=== PATIENT | male | born 1945 | race Caucasian/White ===

== ENCOUNTER → 2020-05-29 | Outpatient (CLI) | payer MEDICARE, OTHER ==
[~2020-05-29] MED LIST: ATENOLOL 25 MG25 M1 PO; FISH OIL 500 M1 EACH PO; HYDROCHLOROTHIA25 M1 PO; LANTUS SUBQ; MULTIVITAMINS1 EAC7 PO; NORCO 5-325 TA1 EACH PO; NOVOLOG100 UNIT/1 SQ; PRAVASTATIN SOD10 MG PO
[2020-05-29 10:13] LABS: CALCIUM 8.4 mg/dL (8.5-10.1); POTASSIUM 3.8 mmol/L (3.5-5.1)
== END ==
LOC: M.LAB 09:45
PROVIDERS: ATTEND Internal Medicine Cardiovascular Disease
DX: I10 Essential (primary) hypertension (principal)

== ENCOUNTER → 2020-10-01 | Outpatient (CLI) | payer MEDICARE, OTHER ==
--- NOTE | 2020-10-01 17:04 | 2DMMODE ---
[place] [address] 2 D/M-MODE ECHOCARDIOGRAM Name: PBSHIMA Room: [facility]#: [id number] Admission: 10/01/20 Attend Phys: Kvng Diaz, Discharge: Date of : 41 Date of Service: 10/01/20 1704 Report #: [id number] THIS REPORT FOR: cc: Mahsa Hoffman MD, Geetha S. MD Liston, Michael J. MD [facility] ~ APPROVED REPORT Study performed: 10/01/2020 13:36:34 EXAM: Comprehensive 2D, Doppler, and color-flow Echocardiogram Patient Location: Out-Patient BSA: 2.43 HR: 74 bpm BP: 120/60 mmHg Other Information Study Quality: Fair Indications Aortic Valve Disease 2D Dimensions IVSd: 12.13 (7-11mm) LVOT Diam: 20.33 (18-24mm) LVDd: 51.93 mm PWd: 11.82 (7-11mm) Ascending Ao: 29.22 (22-36mm) LVDs: 39.30 (25-40mm) Aortic Root: 32.80 mm Volumes Left Atrial Volume (Systole) LA ESV Index: 29.60 mL/m2 Aortic Valve AoV Peak Doug.: 2.74 m/s AO Peak Gr.: 29.98 mmHg LVOT Max P.24 mmHg AO Mean Gr.: 19.03 mmHg LVOT Mean P.21 mmHg LVOT Max V: 0.75 m/s AO V2 VTI: 65.60 cm LVOT Mean V: 0.51 m/s ARNOLD (VTI): 0.81 cm2 LVOT V1 VTI: 16.41 cm Mitral Valve MV Decel. Time: 120.17 [place] [address] 2 D/M-MODE ECHOCARDIOGRAM Name: SHIMA AMBRIZ Room: [facility]#: [id number] Admission: 10/01/20 Attend Phys: Kvng Diaz, Discharge: Date of : 41 Date of Service: 10/01/20 1704 Report #: [id number] MV E Max Doug.: 1.24 m/s MV PHT: 34.85 ms MVA (PHT): 6.31 cm2 TDI E/Lateral E': 13.78 E/Medial E': 13.78 Medial E' Doug.: 0.09 m/s Lateral E' Doug.: 0.09 m/s Pulmonary Valve PV Peak Doug.: 0.86 m/s PV Peak Gr.: 2.99 mmHg Tricuspid Valve RAP Estimate: 5.00 mmHg TR Peak Gr.: 24.38 mmHg RVSP: 29.38 mmHg PA Pressure: 29.38 mmHg Left Ventricle The left ventricle is normal size. There is normal LV segmental wall motion. Mild concentric left ventricular hypertrophy. Left ventricular systolic function is normal. LVEF is 50-55%. This study is not technically sufficient to allow evaluation of the LV diastolic function due to atrial fibrillation. Right Ventricle The right ventricle is normal size. The right ventricular systolic function is normal. Atria Left atrium is mildly dilated. Right atrium is mildly dilated. Aortic Valve Bioprosthetic aortic valve is present. The mean gradient across the valve is 18 mmHg. No aortic regurgitation is present. There appears to be at least mild stenosis of the prosthetic valve based on gradients. Mitral Valve The mitral valve is normal in structure. Mild mitral regurgitation. No evidence of mitral valve stenosis. Tricuspid Valve The tricuspid valve is normal in structure. Mild tricuspid regurgitation. The RVSP is 30-[place] [address] 2 D/M-MODE ECHOCARDIOGRAM Name: SHIMA AMBRIZ Pedro Room: [facility]#: [id number] Admission: 10/01/20 Attend Phys: Kvng Diaz, Discharge: Date of : 41 Date of Service: 10/01/20 1704 Report #: [id number] Pulmonic Valve The pulmonary valve is normal in structure. There is no pulmonic valvular regurgitation. Great Vessels The aortic root is normal in size. IVC is normal in size and collapses >50% with inspiration. Pericardium There is no pericardial effusion. <Conclusion> The left ventricle is normal size. Mild concentric left ventricular hypertrophy. Left ventricular systolic function is normal. LVEF is 50-55%. Left atrium is mildly dilated. Right atrium is mildly dilated. Bioprosthetic aortic valve is present. The mean gradient across the valve is 18 mmHg. Mild mitral regurgitation. Mild tricuspid regurgitation. The RVSP is 30-35 mmHg. IVC is normal in size and collapses >50% with inspiration. <ELECTRONICALLY SIGNED> By: Kvng Diaz MD, FACC 10/01/20 1704 03 03 Kvng Diaz MD, FACC /INF
== END ==
LOC: M.CRD 13:42
PROVIDERS: ATTEND Internal Medicine Cardiovascular Disease
DX: I08.1 Rheumatic disorders of both mitral and tricuspid valves (principal); R55 Syncope and collapse; Z95.2 Presence of prosthetic heart valve

== ENCOUNTER → 2020-10-24 | Outpatient (CLI) | payer MEDICARE, OTHER ==
[2020-10-24] VITALS (7 sets, daily range): BP systolic 106–128; BP diastolic 49–72
[~2020-10-24] MED LIST changes: +AMIODARONE PO
--- NOTE | 2020-10-24 13:02 | EKG ---
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
--- NOTE | 2020-10-24 13:25 | TEE ---
[place] [address] TRANSESOPHAGEAL ECHOCARDIOGRAM Name: PBSHIMA Pedro Room: [facility]#: [id number] Admission: 10/24/20 Attend Phys: Kvng Diaz, Discharge: Date of : 41 Date of Service: 10/24/20 1325 Report #: [id number] THIS REPORT FOR: cc: Mahsa Hoffman MD, Geetha S. MD Liston, Michael J. MD [facility] ~ APPROVED REPORT Study performed: 10/24/2020 12:25:45 EXAM: Transesophageal Echocardiogram Patient Location: Out-Patient Status: routine BSA: 2.48 HR: 77 bpm BP: 124/68 mmHg Rhythm: Atrial Fibrillation Other Information Study Quality: Good Indications Atrial Fibrillation PRE-CARDIOVERSION Echo Enhancing Agent Indication: Rule out Shunt Agent(s) / Amount(s) Used: Agitated Saline 10 cc Procedure After obtaining informed consent, patient underwent transesophageal echo in the [employer]. Type of Sedation : Conscious Sedation Sedation was administered by Jessica Aceves RN. Sedation start time: 1224 Case end Time: 1240 Sedation was achieved intravenously with: Versed (3) Fentanyl (75) Transesophageal probe was inserted and advanced into esophagus without difficulty by Kvng Diaz MD, FACC. Echo enhancement indication: R/O Septal defect. Echo enhancement agent administered: Agitated Saline The MALCOM was performed without complications. Synchronized Cardioversion acheived with 360 Joules after 1 attempt([place] [address] TRANSESOPHAGEAL ECHOCARDIOGRAM Name: SHIMA AMBRIZ Room: [facility]#: [id number] Admission: 10/24/20 Attend Phys: Kvng Diaz, Discharge: Date of : 41 Date of Service: 10/24/20 1325 Report #: [id number] Rhythm following Synchronized Cardioversion: Normal Sinus Rhythm with PACs Throughout the procedure, the blood pressure, pulse oximetry, cardiac rhythm, and rate were monitored. The patient tolerated the procedure without adverse effects. Recovery from conscious sedation was uneventful and vital signs were stable. Left Ventricle The left ventricle is normal size. There is normal LV segmental wall motion. There is normal left ventricular wall thickness. Left ventricular systolic function is normal. LVEF is 50-55%. Right Ventricle The right ventricle is normal size. The right ventricular systolic function is normal. Atria Left atrium is mildly dilated. No thrombus is visualized in the left atrium or appendage. The interatrial septum is intact with no evidence for an atrial septal defect. Right atrium is mildly dilated. Aortic Valve Prosthetic aortic valve visualized. No aortic regurgitation is present. There is no aortic valvular stenosis. Mitral Valve The mitral valve is normal in structure. Mild mitral regurgitation. No evidence of mitral valve stenosis. Tricuspid Valve The tricuspid valve is normal in structure. Mild tricuspid regurgitation. Pulmonic Valve Pulmonic valve is not well visualized. Great Vessels The aortic root is normal in size. Pericardium There is no pericardial effusion. <Conclusion> The left ventricle [place] [address] TRANSESOPHAGEAL ECHOCARDIOGRAM Name: SHIMA AMBRIZ Room: [facility]#: [id number] Admission: 10/24/20 Attend Phys: Kvng Diaz, Discharge: Date of : 41 Date of Service: 10/24/20 1325 Report #: [id number] There is normal left ventricular wall thickness. Left ventricular systolic function is normal. LVEF is 50-55%. There is normal LV segmental wall motion. Left atrium is mildly dilated. No thrombus is visualized in the left atrium or appendage. Right atrium is mildly dilated. The interatrial septum is intact with no evidence for an atrial septal defect. Prosthetic aortic valve visualized. No aortic regurgitation is present. There is no aortic valvular stenosis. Mild mitral regurgitation. Mild tricuspid regurgitation. <ELECTRONICALLY SIGNED> By: Kvng Diaz MD, [facility] 10/24/20 1325 1325 1325 Kvng Diaz MD, FACC /INF
== END | disposition home or self-care (01) ==
LOC: M.CL 10:40
PROVIDERS: ATTEND Internal Medicine Cardiovascular Disease
DX: I48.91 Unspecified atrial fibrillation (principal); I08.1 Rheumatic disorders of both mitral and tricuspid valves; Z98.890 Other specified postprocedural states; Z79.899 Other long term (current) drug therapy; Z79.01 Long term (current) use of anticoagulants

== ENCOUNTER 2020-10-28 10:46 | Inpatient (IN) | payer MEDICARE, OTHER ==
[~2020-10-28] VITALS: Ht 182.9 cm; Wt 79.4 kg
--- NOTE | ~2020-10-28 | CON ---
[address] [address] CONSULTATION Name: SHIMA AMBRIZ Room: [address] IN M.R.#: [id number] Admission: 10/28/20 Attend Phys: Shaun Lo Discharge: Date of : 41 Report #: [id number] THIS REPORT FOR: cc: DENISE - No family physician/PCP FAM - No family physician/PCP ~ Alexandr Welch MD DATE OF SERVICE: 10/29/2020 CONSULT REQUESTED BY: Dr. Bassett. INDICATION FOR CONSULTATION: Pulmonary infiltrates/nodules. HISTORY OF PRESENT ILLNESS: A 75-year-old gentleman with past medical history as mentioned below. The patient is a lifetime nonsmoker. He may have underlying obstructive sleep apnea, not previously diagnosed. There is no known history of smoking. The patient does have a bioprosthetic aortic valve, his baseline creatinine is 1.0. The patient recently had a MALCOM and cardioversion performed by Dr. Diaz for atrial fibrillation. The patient now presented to the Emergency Room yesterday, presentation was with increasing shortness of breath. The patient also brought up small amounts of dark blood and he had been coughing. He essentially did not describe any other complaints. He did not have any upper respiratory complaints. There is no significant increase in swelling of lower extremities. There is no calf pain. There is no known history of fever or chills. He has had some sleep complaints, which are at baseline. The patient did undergo CTA chest, which does show ground-glass infiltrates as well as bilateral pleural effusions, right greater than left. There are also lung nodules and there is some mediastinal lymphadenopathy. The patient currently is comfortable. He is on room air. He is saturating 97%. Does not appear to be in any distress. He is not having any hemoptysis now today. He does not have hemoptysis and now today his shortness of breath is better. REVIEW OF SYSTEMS: The patient's review of systems for 12 points is negative except as mentioned above. PAST MEDICAL HISTORY: Atrial fibrillation, recent cardioversion, bioprosthetic aortic valve, normal left ventricular ejection fraction, pulmonary artery systolic around 35, creatinine at baseline 1.0. Hypertension, diabetes, hyperlipidemia, cataract surgery, hard of hearing, has had hearing aids, vasectomy, ankle fracture, vasectomy was later reversed, [place] [address] CONSULTATION Name: SHIMA AMBRIZ Room: [address]#: [id number] Admission: 10/28/20 Attend Phys: Shaun Lo Discharge: Date of : 41 Report #: [id number] SOCIAL HISTORY: Lifetime nonsmoker. No known history of heavy alcohol use or illegal drug use. CURRENT MEDICATIONS: List in [facility] reviewed. HOME MEDICATIONS: List also in [facility] reviewed. ALLERGIES: No known drug allergies. FAMILY HISTORY: No pertinent family history. PHYSICAL EXAMINATION: GENERAL: He is alert, awake and oriented, does not appear to be in any distress at this time. He is not on supplemental oxygen. He is saturating 96-97%. VITAL SIGNS: Pulse of 60 and a blood pressure of 126/58, respiratory rate is 16-17, afebrile with a temperature of 37.0. Body mass index is mentioned to be 24. He does; however, appear to have a short neck and by appearance the patient is more overweight than the body mass index would suggest. HEENT: Head is normocephalic and atraumatic. He does appear to have a narrow airway. His mucous membranes are moist. NECK: Does not show raised JVP, asymmetry, mass or lymph nodes. CHEST: Symmetrical expansion on inspection and palpation. On auscultation, chest is clear. HEART: Regular. There is no murmur. ABDOMEN: Soft and nontender. EXTREMITIES: Lower extremities show trace edema. No calf tenderness. SKIN: Dry and intact. NEUROLOGICAL: Moves all extremities bilaterally equally and spontaneously with no focal deficit identified. LABORATORY DATA: The patient's chest x-ray as well as CTA chest films as well as report are reviewed. See also discussion above regarding these. The patient's lab work is also in [facility] reviewed. COVID-19 antigen is negative. PCR is pending. ASSESSMENT/PLAN: 1. Ground-glass pulmonary infiltrates/fluid overload/bilateral pleural effusions. Due to the fact that there are bilateral pleural effusions, right greater than left, he does appear to me that there is a component of fluid overload. The appearance of the infiltrates; however, is not typical for pulmonary edema. We will review labs tomorrow. Note that he has received vancomycin and he has also had IV dye. If his creatinine is stable tomorrow, then I will consider diuresing him tomorrow and see if these infiltrates improve as a result. Meanwhile, I do favor continuing with broad-spectrum antibiotic [address] [address] CONSULTATION Name: HERBEL,SHIMA C Room: [address] IN .R.#: [id number] Admission: 10/28/20 Attend Phys: Shaun Lo Discharge: Date of : 41 Report #: [id number] coverage. He is now on azithromycin as well as ceftriaxone per the ID service, I feel that this is reasonable. If we are able to, I would like to get a sputum culture. Other serologies are also ordered. These include a COVID-19 PCR, which is pending at this time. 2. Lung nodules and mediastinal lymphadenopathy. These could be related to the infiltrates above, but these could also be a separate more chronic process, which may have been incidentally discovered on the CT. I do not have a previous CT available for comparison. Septic emboli can give this picture, but the patient's history is not consistent with septic emboli. Other etiology certainly include fungal infections as well as malignancies as well as connective tissue diseases. We would address the above study, but down the line, I would consider a bronchoscopy to investigate this further and may also down the line consider a CT of the abdomen and pelvis. I did order a urine for histoplasma antigen as well. We will also obtain connective tissue markers potentially Fungitell and galactomannan can be done; however, these will take several days to come back here and therefore may not affect management. 3. Atrial fibrillation/recent cardioversion. Suggest holding off on oral anticoagulation until decision regarding whether we will be proceeding with the bronchoscopy. May in the interim use heparin or Lovenox for anticoagulation if indicated per the Cardiology service. 4. Suspected underlying obstructive sleep apnea. Recommend obtaining an outpatient sleep study after discharge. 5. Bioprosthetic aortic valve. Thanks for this consultation. By: 2231 MD kari Moreno
[2020-10-28 11:00] VITALS: BP 118/53
[2020-10-28] MEDS ORDERED: AMIODARONE HCL400 MG PO (11:07)
[2020-10-28] MEDS ORDERED: XARELTO20 MG PO (11:07)
[2020-10-28 11:40] LABS: ABSOLUTE EOSINOPHILS 0.1 thou/uL (0.0-0.7); ABSOLUTE LYMPHOCYTES 0.9 thou/uL (0.8-5.3); ABSOLUTE MONOCYTES 0.9 thou/uL (0.0-1.2); ABSOLUTE NEUTROPHILS 9.9 thou/uL (1.6-8.1); BASOPHILS 0.4 %; EOSINOPHILS 0.7 %; HEMATOCRIT 41.1 % (42.0-52.0); HEMOGLOBIN 13.4 gm/dL (14.0-18.0); LYMPHOCYTES 7.7 %; MCH 27.7 pg (26.0-34.0); MCHC 32.5 g/dL (28.0-37.0); MCV 85.1 fL (80.0-100.0); MONOCYTES 7.8 %; MPV 7.9 fl. (7.2-11.1); NUCLEATED RBCS 0 /100WBC; PLATELET COUNT* 177 thou/uL (150-400); POLYS 83.4 %; RBC 4.83 mil/uL (4.50-6.00); RDW-CV 14.1 % (10.5-14.5); WBC 11.8 thou/uL (4.0-11.0)
[2020-10-28 11:44] LABS: CALCIUM 9.3 mg/dL (8.5-10.1); CREATININE 1.2 mg/dL (0.6-1.3); POTASSIUM 3.8 mmol/L (3.5-5.1)
[2020-10-28 11:48] LABS: APTT 46.4 Seconds (25.0-31.3); INR 1.3
[2020-10-28 11:56] LABS: ALBUMIN 3.5 g/dL (3.4-5.0); TOTAL BILIRUBIN 1.6 mg/dL (<0.1-1.0); TOTAL PROTEIN 7.6 g/dL (6.4-8.2)
[2020-10-28 17:55] VITALS: BP 116/45
[2020-10-28 19:02] VITALS: BP 154/75
[2020-10-28 19:30] VITALS: BP 141/60
[2020-10-28] MEDS ORDERED: VITAMIN B-121000 MC2 SUBLING (20:24)
[2020-10-28] MEDS ORDERED: VITAMIN D3250 MC1 PO (20:25)
[2020-10-29 00:41] VITALS: BP 115/44
--- NOTE | 2020-10-29 04:33 | NUR ---
PT SLEPT ON AND OFF THIS SHIFT. ASSESSMENT DOCUMENTED. MEDS GIVEN PER E-DEC. IV PATENT, ABX INFUSED. NO REPORTS OF PAIN. PT ON ROOM AIR. ISOLATION MAINTAINED.
[2020-10-29 05:10] VITALS: BP 146/66
[2020-10-29 07:50] VITALS: BP 134/60
[2020-10-29 11:54] VITALS: BP 129/66
--- NOTE | 2020-10-29 14:30 | NUR ---
SPOKE WITH PT.ON PHONE DUE TO PENDING PCR AND ON ENHANCED PRECAUTIONS. HE WAS ALERT AND ORIENTED. HE STATED HE LIVES WITH HIS . NO USE OF DME. IS NORMALLY INDEPENDENT. DAUGHTER IS ALSO SUPPORTIVE. NURSING SAID HE IS UP AD NAZARIO IN ROOM. ON ROOM AIR. CM WILL FOLLOW FORE ANY DISCHARGE NEEDS.
[2020-10-29 15:00] VITALS: BP 126/58
--- NOTE | 2020-10-29 16:07 | EKG ---
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1945 Requested By: Kim Nugent Order Number: [id number] MD: Tate Rodriguez Measurements Intervals [place] Rate: 59 P: [place]: QRS: 4 QRSD: 100 T: 91 QT: 463 QTc: 459 Interpretive Statements Sinus rhythm Anteroseptal infarct, age indeterminate possible Compared to ECG 10/24/2020 11:55:06 Myocardial infarct finding now possible Atrial fibrillation no longer present T-wave abnormality no longer present Prolonged QT interval no longer present Electronically Signed On 10-29-2020 16:07:12 RECOVERY COORDINATOR by Tate Rodriguez [email or web address] <ELECTRONICALLY SIGNED> By: Tate Rodriguez MD, FAC 10/29/20 1607 1154 1154 Tate Rodriguez MD, [facility]GED WITH [facility] /EPI
--- NOTE | 2020-10-29 16:51 | NUR ---
PT A&OX4 VSS. PT UP AD NAZARIO, URINAL AT BEDSIDE. PT REMAINS ON ROOM AIR, SATS 95%. PT ACCUCHECK, SLIDING SCALE INSULIN ON DEC. PT SINUS ON MONITOR, PVC AT TIMES. IV ABX ADMINISTERED DIRECTED. IV TO RAC DC'D AND NEW ACCESS PLACED TO LFA BY JAMARCUS KUMAR. IV PATENT, DRESSING C/D/I. CARB CONTROL DIET RESUMED BY CARDIOLOGY. PT RESTS IN ROOM WITH CALL LIGHT IN REACH.
[2020-10-29 19:45] VITALS: BP 147/57
[2020-10-30] VITALS: BP 145/66
[2020-10-30 04:00] VITALS: BP 122/50
--- NOTE | 2020-10-30 04:51 | NUR ---
PT SLEPT MOST OF SHIFT. ASSESSMENT DOCUMENTED. MEDS GIVEN PER E-DEC. IV PATENT. NO REPORTS OF PAIN THIS SHIFT. NO O2 NEEDS. PTS COVID PCR CAME BACK 'NOT DETECTED', NOTIFED.
[2020-10-30 05:20] LABS: ABSOLUTE BASOPHILS 0.1 thou/uL (0.0-0.2); ABSOLUTE EOSINOPHILS 0.4 thou/uL (0.0-0.7); ABSOLUTE LYMPHOCYTES 1.5 thou/uL (0.8-5.3); ABSOLUTE MONOCYTES 0.9 thou/uL (0.0-1.2); ABSOLUTE NEUTROPHILS 7.7 thou/uL (1.6-8.1); BASOPHILS 0.8 %; EOSINOPHILS 3.9 %; HEMATOCRIT 39.2 % (42.0-52.0); HEMOGLOBIN 12.8 gm/dL (14.0-18.0); LYMPHOCYTES 14.1 %; MCH 27.9 pg (26.0-34.0); MCHC 32.7 g/dL (28.0-37.0); MCV 85.2 fL (80.0-100.0); MONOCYTES 8.6 %; MPV 7.4 fl. (7.2-11.1); NUCLEATED RBCS 0 /100WBC; PLATELET COUNT* 181 thou/uL (150-400); POLYS 72.6 %; RDW-CV 14.7 % (10.5-14.5); WBC 10.6 thou/uL (4.0-11.0)
[2020-10-30 05:37] LABS: ALBUMIN 3.2 g/dL (3.4-5.0); CALCIUM 8.6 mg/dL (8.5-10.1); CREATININE 1.1 mg/dL (0.6-1.3); MAGNESIUM 2.3 mg/dL (1.8-2.4); POTASSIUM 3.6 mmol/L (3.5-5.1); TOTAL PROTEIN 7.1 g/dL (6.4-8.2)
[2020-10-30 07:40] VITALS: BP 151/61
--- NOTE | 2020-10-30 11:58 | NUR ---
DISCUSSED IN PRIME TIME ROUNDS. PT.S COVID TESTS CAME BACK NEGATIVE. SAID HE POSSIBLY NEEDS A BRONCH. IS ON RA CURRENTLY. CONTINUE TO FOLLOW.
[2020-10-30 12:10] VITALS: BP 139/48
[2020-10-30 16:03] VITALS: BP 142/60
--- NOTE | 2020-10-30 18:40 | NUR ---
PT A&OX4 VSS. UP AD NAZARIO, GAIT STEADY. PT ON ROOM AIR. URINAL AT BEDSIDE. PT UP TO RECLINER THIS SHIFT. ACCUCHECKS, INSULIN ADMINISTERED DIRECTED. PT NPO LUNCH FOR CT, CARB CONTROL DIET RESUMED FOLLOWING EXAM. IV TO LFA PATENT, DRESSING C/D/I. PT REMAINS SINUS ON MONITOR. PT RESTS IN ROOM WITH CALL LIGHT IN REACH. PT DENIES PAIN, N/V AT THIS TIME.
[2020-10-30 19:30] VITALS: BP 152/63
[2020-10-31] VITALS: BP 155/53
[2020-10-31 04:00] VITALS: BP 127/52
--- NOTE | 2020-10-31 06:38 | NUR ---
ASSESSMENT DOCUMENTED. MEDS GIVEN PER E-MAR. IV PATENT. NO REPORTS OF PAIN. PT REMAINED ON ROOM AIR THIS SHIFT.
[2020-10-31 09:15] VITALS: BP 140/62
[2020-10-31 10:10] LABS: CALCIUM 8.2 mg/dL (8.5-10.1); POTASSIUM 3.9 mmol/L (3.5-5.1)
[2020-10-31 14:44] VITALS: BP 133/45
--- NOTE | 2020-10-31 16:00 | NUR ---
ON ROOM AIR. CONTS ON IV ROCEPHIN AND AZITHROMYCIN. IS TO HAVE CT OF CHEST TOMORORW. CM WILL FOLLOW.
[2020-10-31 16:58] LABS: CALCIUM 9.4 mg/dL (8.5-10.1); CREATININE 1.2 mg/dL (0.6-1.3); MAGNESIUM 2.2 mg/dL (1.8-2.4); POTASSIUM 4.8 mmol/L (3.5-5.1)
[2020-10-31 17:25] VITALS: BP 136/61
--- NOTE | 2020-10-31 18:59 | NUR ---
PC FROM DR. QUARLES. LABS READ FROM THIS AFTERNOON. ORDER FOR 40 MG IV LASIX X 1 THIS EVENING. NO OTHER ORDERS GIVEN.
[2020-10-31 20:00] VITALS: BP 149/59
--- NOTE | 2020-10-31 20:00 | NUR ---
PT ALERT AND ORIENTED. VSS. PT UP AD NAZARIO. PT TO BE NPO IN THE AM FOR ABDOMINAL CT. NEW ORDERS GIVEN BY DR. KAY. PT ACCU CHECKS COMPLETED. PT RESPS EVEN AND UNLABORED. PT NOT ON ISOLATION. WILL CONTINUE TO MONITOR.
[2020-10-31 21:06] LABS: ANA INTERPRETATION Negative (())
[2020-11-01] VITALS (9 sets, daily range): BP systolic 134–146; BP diastolic 55–65
[2020-11-01 02:06] LABS: MYCOPLASMA PNEUMONIA IgG 2241 U/mL (0-99); MYCOPLASMA PNEUMONIA IgM <770 U/mL (0-769)
--- NOTE | 2020-11-01 04:30 | NUR ---
PT ALERT AND ORIENTED. ROOM AIR. NO REPORTS OF ANY PAIN, NAUSEA OR VOMITING. RECEIVED MEDS SCHEDULED. NPO SINCE MIDNIGHT. CT OF CHEST ORDERED FOR WEDNESDAY. MONITOR LABS. SKIN COLOR IMPROVING, LASIX GIVEN. WILL CONTINUE TO FOLLOW PLAN OF CARE.
[2020-11-01 05:25] LABS: ABSOLUTE BASOPHILS 0.1 thou/uL (0.0-0.2); ABSOLUTE EOSINOPHILS 0.6 thou/uL (0.0-0.7); ABSOLUTE LYMPHOCYTES 1.2 thou/uL (0.8-5.3); ABSOLUTE MONOCYTES 0.9 thou/uL (0.0-1.2); ABSOLUTE NEUTROPHILS 7.3 thou/uL (1.6-8.1); BASOPHILS 0.7 %; EOSINOPHILS 6.4 %; HEMATOCRIT 43.1 % (42.0-52.0); HEMOGLOBIN 14.3 gm/dL (14.0-18.0); LYMPHOCYTES 11.5 %; MCH 28.1 pg (26.0-34.0); MCHC 33.1 g/dL (28.0-37.0); MCV 84.8 fL (80.0-100.0); MONOCYTES 8.7 %; MPV 7.5 fl. (7.2-11.1); NUCLEATED RBCS 0 /100WBC; PLATELET COUNT* 218 thou/uL (150-400); POLYS 72.7 %; RBC 5.09 mil/uL (4.50-6.00); RDW-CV 14.5 % (10.5-14.5)
[2020-11-01 05:41] LABS: CALCIUM 9.6 mg/dL (8.5-10.1); CREATININE 1.2 mg/dL (0.6-1.3); POTASSIUM 3.7 mmol/L (3.5-5.1)
[2020-11-01] MEDS ORDERED: AUGMENTIN 875-1 EACH PO (08:49)
--- NOTE | 2020-11-01 11:00 | NUR ---
POTENTIAL DISCHARGE TODAY PENDING PROCEDURES. NO DISCHARGE NEEDS.
[2020-11-01] MEDS ORDERED: LASIX 40 MG TAB40 MG PO (12:11)
[2020-11-01] MEDS ORDERED: XARELTO20 MG PO (13:49)
--- NOTE | 2020-11-01 17:11 | NUR ---
PT DISCHARGED HOME WITH ALL BELONGINGS. PT AMBULATED TO OUT PATIENT ENTRANCE/EXIT WITH STEADY GAIT, PT DISCHARGED HOME PT DENIES PAIN VSS AFEBRILE. PT HAS GOOD UNDERSTANDING OF DISCHARGE INSTRUCTIONS AND WHEN TO CALL THE DR OR GO BACK TO THE ER. PT WAS ROUNDED ON EVERY 2 HOURS. SALINE LOCKS REMOVED FROM LEFT FOREARM AND RIGHT AC SPACE, WITH OUT DIFFICULTY NO BLEEDING OR BRUISING NOTED. HEART MONITOR REMOVED WITH OUT DIFFICULTY. PT DISCHARGED HOME AND WILL FOLLOW UP WITH PULMONARY AND CARDIOLOGY. CARDIOLOGY APPOINTMENT MADE FOR A MALCOM PROCEEDEURE FOR TUESDAY 11/07.2020.
--- NOTE | 2020-11-01 17:14 | NUR ---
THIS NURSE AGREES WITH ASSESSMENT BY SHRAVAN.
== END 2020-11-01 17:32 | disposition home or self-care (01) | DRG 177 ==
LOC: M.ERS 10:46 → M.TBA-ER 14:12 → M.ORTHSURG 14:12
PROVIDERS: Internal Medicine; Internal Medicine Critical Care Medicine; Nurse Practitioner Family; ADMIT Internal Medicine; ATTEND Internal Medicine
DX: J15.6 Pneumonia due to other Gram-negative bacteria (principal); J96.01 Acute respiratory failure with hypoxia; R04.2 Hemoptysis; I10 Essential (primary) hypertension; I48.91 Unspecified atrial fibrillation; E78.5 Hyperlipidemia, unspecified; E87.70 Fluid overload, unspecified; E11.40 Type 2 diabetes mellitus with diabetic neuropathy, unspecified; R91.1 Solitary pulmonary nodule; R59.1 Generalized enlarged lymph nodes; I48.0 Paroxysmal atrial fibrillation; Z20.822 Contact with and (suspected) exposure to COVID-19; Z95.1 Presence of aortocoronary bypass graft; Z98.52 Vasectomy status; Z87.81 Personal history of (healed) traumatic fracture; Z98.49 Cataract extraction status, unspecified eye; Z95.2 Presence of prosthetic heart valve

== ENCOUNTER → 2020-12-03 | Outpatient (CLI) | payer MEDICARE, OTHER ==
[~2020-12-03] MED LIST changes: +AMIODARONE HCL400 MG PO; +AUGMENTIN 875-1 EACH PO; +LASIX 40 MG TAB40 MG PO; +VITAMIN B-121000 MC2 SUBLING; +VITAMIN D3250 MC1 PO; +XARELTO20 MG PO
--- NOTE | 2020-12-09 21:05 | SLEEP ---
[address] [address] SLEEP STUDY REPORT Name: PBSHIMA Pedro Room: [facility]#: [id number] Admission: 12/03/20 Attend Phys: Alexandr Welch MD Discharge: Date of : 41 Report #: [id number] THIS REPORT FOR: cc: Jessica Michele MD, Lin W. MD ~ Alexandr Welch MD This study has been reviewed in its entirety by a board certified sleep specialist DATE OF SERVICE: 12/03/2020 HOME SLEEP STUDY INTERPRETATION: Total duration of the study is 605 minutes. During this time duration, we recorded multiple sleep related respiratory events. These included 71 obstructive apneas in addition to 90 hypopneas with an overall apnea-hypopnea index of 45.8. The patient also had multiple and deep desaturations throughout the sleep study. Overall, the patient spent 112 minutes below an O2 saturation of 90%, out of which 24 minutes were spent below an O2 saturation of 85%. There were some desaturations into the 60s recorded. The patient spent 10 minutes below an O2 saturation of 80%. Body position data indicates the patient was observed in the supine position for 143 minutes. Respiratory time, the patient was on the right side. Mean heart rate was 62. There is no obvious positional variation detected. IMPRESSION: 1. There is severe obstructive sleep apnea with an apnea-hypopnea index of 45.8. 2. There is severe nocturnal hypoxemia as described above with the patient spending 112 minutes below an O2 saturation of 90%, 82.5 minutes below an O2 saturation of 88%. Some desaturations into the 60s, also recorded. RECOMMENDATIONS: 1. Recommend proceeding to an in-lab sleep study for positive airway pressure titration. 2. Until the in-lab sleep study is available, I suggest placing the patient on oxygen 3 liters while asleep. 3. Recommend avoiding driving or other activities requiring [place] [address] SLEEP STUDY REPORT Name: SHIMA AMBRIZ Room: [facility]#: [id number] Admission: 12/03/20 Attend Phys: Alexandr Welch MD Discharge: Date of : 41 Report #: [id number] This entire sleep study was reviewed by board certified sleep physician. <ELECTRONICALLY SIGNED> By: Alexandr Welch MD 12/09/20 2105 1527 [id number] Welch MD /nt
--- NOTE | 2020-12-09 21:05 | PF ---
[address] [address] PULMONARY FUNCTION REPORT Name: SHIMA AMBRIZ Room: [facility]#: [id number] Admission: 12/03/20 Attend Phys: Alexandr Welch MD Discharge: Date of : 41 Report #: [id number] THIS REPORT FOR: cc: Jessica Michele MD, Lin W. MD ~ Alexandr Welch MD DATE OF SERVICE: 12/03/2020 PULMONARY FUNCTION TEST The FEV1/FVC ratio is normal at 73% with an FVC normal at 96%. The FEV1 is also normal at 97%. The [id number] is normal at 103%. There is no significant change in any of these values after the administration of a bronchodilator. The patient's post-bronchodilator FEV1 is noted to be 3.17 liters. The total lung capacity is decreased to 65%. The residual volume is not available. The DLCO as adjusted for hemoglobin is decreased to 66%. IMPRESSION: 1. The spirometry is normal; however, the total lung capacity is decreased to 65%. This is consistent with significant restriction. Clinical correlation is advised. 2. The DLCO as adjusted for hemoglobin is decreased to 66%. <ELECTRONICALLY SIGNED> By: Alexandr Welch MD 12/09/20 2105 1529 [id number] Welch MD /brianna
== END ==
LOC: M.PUL 11-27 13:33
PROVIDERS: ATTEND Internal Medicine Critical Care Medicine
DX: G47.33 Obstructive sleep apnea (adult) (pediatric) (principal); G47.34 Idiopathic sleep related nonobstructive alveolar hypoventilation; G47.10 Hypersomnia, unspecified; R06.02 Shortness of breath

== ENCOUNTER → 2020-12-13 | Outpatient (CLI) | payer MEDICARE, OTHER | LOC: M.RAD 16:38 | PROVIDERS: ATTEND Internal Medicine | DX: M16.0 Bilateral primary osteoarthritis of hip (principal) ==

== ENCOUNTER → 2021-01-03 | Outpatient (CLI) | payer MEDICARE, OTHER ==
[2021-01-03 08:37] LABS: CHOLESTEROL 158 mg/dL (<200); HDL CHOLESTEROL 60 mg/dL (>40); LDL CHOLESTEROL 85 mg/dL (<100); TC:HDL 2.6 Ratio (Not establshd); TRIGLYCERIDE 69 mg/dL (<150); VLDL 14 mg/dL (<40)
[2021-01-03 08:39] LABS: SERUM ASSESSMENT Clear
== END ==
LOC: M.LAB 08:12
PROVIDERS: ATTEND Internal Medicine Cardiovascular Disease
DX: E78.2 Mixed hyperlipidemia (principal)

== ENCOUNTER → 2021-01-21 | Outpatient (CLI) | payer MEDICARE, OTHER ==
--- NOTE | 2021-02-04 13:39 | SLEEP ---
[address] [address] SLEEP STUDY REPORT Name: PBSHIMA Pedro Room: [facility]#: [id number] Admission: 01/21/21 Attend Phys: Alexandr Welch MD Discharge: Date of : 41 Report #: [id number] THIS REPORT FOR: cc: Jessica Michele MD, Lin W. MD Pervez, Adeel MD ~ DOC #: [id number] Alexandr Welch MD SLEEP STUDY INDICATION FOR SLEEP STUDY: Obstructive sleep apnea with nocturnal hypoxemia noted on the home sleep study. Sleep study is being performed for positive airway pressure titration. INTERPRETATION: The total duration of the sleep study is 448 minutes, out of which the patient was asleep for 256 minutes with an overall sleep efficiency decreased to 57%. The sleep onset occurred around 25 minutes after lying down in bed and REM onset was 91 minutes after sleep onset. N1 sleep duration is 14%. N2 duration is 46%. N3 duration is 19%. REM duration is 21%. Body position data indicates that the patient was observed asleep in the supine position for 194 minutes. The rest of the time, he was on the left side. Mean heart rate was 50. Periodic limb movement index is mildly elevated to 18.1. Most limb movements, however, are not associated with arousals. There is sleep fragmentation observed. Arousal index is elevated to 25. IMPRESSION: This is a CPAP titration. Review of the CPAP titration indicates that the patient was titrated beginning with a CPAP pressure of 6 cm of water, gradually increasing to 12 cm of water. There is a favorable response to CPAP therapy; however, evaluation is limited due to the fact that the patient is awake in prolonged periods of time during this sleep study. There is only a brief duration of time REM supine sleep observed on a CPAP pressure of 10 cm of water. There are multiple desaturations continuing to occur throughout the sleep study. O2 saturations frequently dip into the upper 80s. O2 saturation, however, mostly remains at or above 88%. On the final CPAP pressure of 12 cm of water, there is still an elevation in apnea-hypopnea index to 12.4. O2 saturation is now maintained at or above 91%; however, the patient mostly is awake towards the end of the sleep study. As noted, when he is in sustained sleep, he has some desaturations into the upper 80s. IMPRESSION: 1. The patient at baseline has severe obstructive sleep apnea with an apnea-hypopnea index of 45.8 with marked nocturnal hypoxemia as demonstrated [place] [address] SLEEP STUDY REPORT Name: SHIMA AMBRIZ Room: [facility]#: [id number] Admission: 01/21/21 Attend Phys: Alexandr Welch MD Discharge: Date of : 41 Report #: [id number] 2. During this sleep study, the patient is noted to have improvement with the administration of CPAP of 12 cm of water. Some sleep related respiratory events do however continue to occur and complete control of the patient's sleep apnea is not achieved. The patient still does have desaturations into the upper 80s while on CPAP. Evaluation during the sleep study is also limited due to the fact that the patient is awake for prolonged periods of time during this sleep study. RECOMMENDATIONS: 1. For now, we will go ahead and place the patient on a CPAP of 12 cm of water with heated humidity and mask per patient's preference while asleep during the sleep study. A ResMed AirFit F20 medium size mask full face was used. 2. I plan to obtain a nocturnal pulse oximetry with the CPAP in place in a few weeks to verify that the patient's O2 saturations are being adequately maintained with this therapy. 3. Once the patient has gotten accustomed the use of CPAP in the next few months, I intend to repeat a sleep study for repeat positive airway pressure titration. At this time, we will also clearly instruct the patient to stay awake the whole day and avoid caffeine during the day before the sleep study so that an adequate positive airway pressure titration can be performed. 4. Recommend avoiding driving or other activities requiring vigilance if drowsy. 5. Recommend weight loss. 6. This entire sleep study was reviewed by board certified sleep physician. MD ZURDO Pennington/MATY <ELECTRONICALLY SIGNED> By: Alexandr Welch MD 02/04/21 1339 0626 [id number] Welch MD /nt
== END ==
LOC: M.SLEEPLAB 01-17 21:00
PROVIDERS: ATTEND Internal Medicine Critical Care Medicine
DX: G47.33 Obstructive sleep apnea (adult) (pediatric) (principal)

== ENCOUNTER → 2021-01-24 | Outpatient (CLI) | payer MEDICARE, OTHER | LOC: M.LAB 11-21 14:05 | PROVIDERS: ATTEND Internal Medicine Critical Care Medicine | DX: R91.8 Other nonspecific abnormal finding of lung field (principal); R59.0 Localized enlarged lymph nodes; I51.7 Cardiomegaly ==

== ENCOUNTER → 2021-03-21 | Outpatient (CLI) | payer MEDICARE, OTHER | END | disposition home or self-care (01) | LOC: M.RAD 12:28 | PROVIDERS: ATTEND Orthopaedic Surgery | DX: M25.551 Pain in right hip (principal); I10 Essential (primary) hypertension; E11.9 Type 2 diabetes mellitus without complications; E78.00 Pure hypercholesterolemia, unspecified; I48.91 Unspecified atrial fibrillation; Z98.890 Other specified postprocedural states; Z79.899 Other long term (current) drug therapy; Z79.01 Long term (current) use of anticoagulants ==

== ENCOUNTER → 2021-03-24 | Outpatient (CLI) | payer MEDICARE, OTHER | LOC: M.RAD 16:35 | PROVIDERS: ATTEND Internal Medicine Critical Care Medicine | DX: R06.02 Shortness of breath (principal) ==

== ENCOUNTER → 2021-04-11 | Outpatient (CLI) | payer MEDICARE, OTHER | LOC: M.MRI 07:30 | PROVIDERS: ATTEND Orthopaedic Surgery | DX: M47.817 Spondylosis without myelopathy or radiculopathy, lumbosacral region (principal); M51.27 Other intervertebral disc displacement, lumbosacral region; M48.07 Spinal stenosis, lumbosacral region ==

== ENCOUNTER 2021-04-20 20:55 | Inpatient (IN) | payer MEDICARE, OTHER ==
[~2021-04-20] VITALS: Ht 182.9 cm; Wt 113.4 kg
[~2021-04-20 20:55] MED LIST changes: -MULTIVITAMINS1 EAC7 PO; +SUPER THERAVIT1 EACH PO
[2021-04-20 21:00] VITALS: BP 175/73
[2021-04-20] MEDS ORDERED: LIPITOR10 MG PO (21:10)
[2021-04-20] MEDS ORDERED: EYE DROPS (21:10)
[2021-04-20 21:55] LABS: ABSOLUTE EOSINOPHILS 0.1 thou/uL (0.0-0.7); ABSOLUTE LYMPHOCYTES 1.4 thou/uL (0.8-5.3); ABSOLUTE MONOCYTES 0.6 thou/uL (0.0-1.2); ABSOLUTE NEUTROPHILS 6.1 thou/uL (1.6-8.1); BASOPHILS 0.4 %; EOSINOPHILS 1.7 %; HEMATOCRIT 41.5 % (42.0-52.0); HEMOGLOBIN 14.2 gm/dL (14.0-18.0); LYMPHOCYTES 16.8 %; MCH 28.3 pg (26.0-34.0); MCHC 34.4 g/dL (28.0-37.0); MCV 82.3 fL (80.0-100.0); MONOCYTES 7.3 %; NUCLEATED RBCS 0 /100WBC; PLATELET COUNT* 134 thou/uL (150-400); POLYS 73.8 %; RBC 5.04 mil/uL (4.50-6.00); WBC 8.2 thou/uL (4.0-11.0)
[2021-04-20 22:42] LABS: CALCIUM 8.6 mg/dL (8.5-10.1); CREATININE 1.2 mg/dL (0.6-1.3); POTASSIUM 3.4 mmol/L (3.5-5.1)
[2021-04-20 22:44] LABS: URINE BILIRUBIN NEGATIVE (Negative); URINE BLOOD TRACE (Negative); URINE CLARITY CLEAR; URINE COLOR YELLOW; URINE GLUCOSE-RANDOM TRACE (Negative); URINE KETONES NEGATIVE (Negative); URINE LEUKOCYTES-REFLEX NEGATIVE (Negative); URINE NITRITE-REFLEX NEGATIVE (Negative); URINE PROTEIN 2+ (Negative); URINE SPECIFIC GRAVITY 1.025 (1.005-1.030)
[2021-04-20 22:53] LABS: ALBUMIN 3.3 g/dL (3.4-5.0); MAGNESIUM 1.7 mg/dL (1.8-2.4); TOTAL BILIRUBIN 0.9 mg/dL (<0.1-1.0); TOTAL PROTEIN 7.1 g/dL (6.4-8.2)
[2021-04-20 23:21] LABS: CASTS None Seen /LPF (None Seen); SQUAMOUS 0-3 Few /LPF (0-3)
[2021-04-20 23:22] LABS: BACTERIA-REFLEX 1-9 Few /HPF (None Seen); CRYSTALS None Seen /LPF (None Seen); URINE RBC 0-2 Rare /HPF (0-2); URINE WBC-REFLEX 0-5 Rare /HPF (0-5)
[2021-04-21] VITALS (9 sets, daily range): BP systolic 112–177; BP diastolic 44–70
[2021-04-21 08:37] LABS: CHOLESTEROL 108 mg/dL (<200); HDL CHOLESTEROL 58 mg/dL (>40); LDL CHOLESTEROL 45 mg/dL (<100); TC:HDL 1.9 Ratio (Not establshd); TRIGLYCERIDE 28 mg/dL (<150); VLDL 6 mg/dL (<40)
[2021-04-21 08:39] LABS: SERUM ASSESSMENT Clear
--- NOTE | 2021-04-21 09:04 | NUR ---
PT GETTING ECHO DONE AT THIS TIME.
--- NOTE | 2021-04-21 10:02 | EKG ---
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
--- NOTE | 2021-04-21 10:08 | EKG ---
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 04/21/21 1007 0134 0134 Ted Pate MD, [facility] /EPI
--- NOTE | 2021-04-21 12:45 | NUR ---
PT HAVING RUNS OF V-TACH. GIVEN AMIO 200MG PO AND POTASSIUM 20MEQ PO. PER DR. ORTIZ. AUGER OPERATOR RN CAME TO GET PT AND THIS NURSE AND JAILENE RN FROM AUGER OPERATOR TOOK PT IN BED TO AUGER OPERATOR.
--- NOTE | 2021-04-21 17:10 | CARD ---
[address] [address] CARDIAC CATH REPORT Name: SHIMA AMBRIZ Pedro Room: [place] [address] ADM IN [facility].#: [id number] Admission: 04/20/21 Attend Phys: Kareem Reddy MD Discharge: Date of : 43 Report #: [id number] THIS REPORT FOR: cc: Jessica Michele MD, Lin W. MD Blick, David R. MD [facility] ~ APPROVED REPORT Study performed: 04/21/2021 12:27:31 Patient Details Patient Status: ED Room #: The patient is a 75 year-old male Event Personnel Ted Pate Sample Tester Grinder, Sherin Cerda RN Solution Lead, Zulma Masters RTR Monitor, Mariely Moreno RTR Scrub Procedures Performed Art Access - R femoral artery , Coronaries Angiography and Bypass Grafts CORCABG , Supravalvular Aortography Injection ISVA , Hemostasis w/ Mynx, direct current cardioversion was used twice to terminate symptomatic ventricular tachycardia Indication Non-STEMI , Syncope, Valvular heart disease Risk Factors Arterial Hypertension, Hypercholesterolemia, Diabetes Previous Procedures/Diagnoses Previous CABG, Previous Valve Surgery Admission/Lab Medications/Medications given during procedure Amiodarone IV 150 mg per min, Magnesium Sulfate IV 1 g, Amiodarone IV 150 mg per min, Hydralazine (Apresoline) IV 10 mg Procedure Narrative The patient was brought electively to the Cardiac Catheterization Laboratory and was prepped and draped in a sterile manner. The right femoral was infiltrated with 2% Lidocaine subcutaneous anesthesia. IV conscious sedation was used throughout procedure with appropriate monitoring and was performed in the presence [place] [address] CARDIAC CATH REPORT Name: SHIMA AMBRIZ Room: [address]#: [id number] Admission: 04/20/21 Attend Phys: Kareem Reddy MD Discharge: Date of : 43 Report #: [id number] who was an independent trained observer other than the physician performing the procedure. A 6F Ultimum sheath was inserted into the right femoral artery. Coronary angiography was performed using coronary diagnostic catheters. The right coronary system was accessed and visualized with a 6F JR4 catheter. The left coronary system was accessed and visualized with a 6F JL4 catheter. An aortogram of the ascending aorta was performed. Closure device was deployed with a 6 Fr Mynx. There was no hematoma. The patient developed V-Tach and was defibrillated twice at 100 joules. A 6F Pigtail catheter was used for the Aortogram. A 6F IM catheter was used to access and visualize the NUNEZ graft. Intraoperative Conscious Sedation Sedation start time: 13:05 Case end Time: 13:40 Versed 1 mg Fluoro Time: 4.4 minutes Dose: DAP 87679 cGycm2 1119 mGy Contrast Type and Amount: Visipaque 150 ml Coronary Angiography The patient's coronary anatomy is right dominant. [place] Artery Percent Stenosis Grafts (Complete if Previous CABG=Yes: Percent Stenosis) Patent NUNEZ graft to the distal LAD. Diagnostic Cath Left Main 0% stenosis LAD 30% proximal stenosis, 100% chronically occluded after the first diagonal branch Diagonal 1 large vessel with 60% proximal stenosis Circumflex 50% mid stenosis OM2 medium sized vessel with 60% proximal stenosis Right Coronary 30% proximal and distal stenosis Left Ventriculography Left Ventriculography was not performed. Aortic root injection revealed only trace regurgitation through the tissue aortic valve. Hemodynamics The aortic pressure is 170/60 mmHg with a mean of 103 [place] [address] CARDIAC CATH REPORT Name: SHIMA AMBRIZ Room: [address] IN [facility]#: [id number] Admission: 04/20/21 Attend Phys: Kareem Reddy MD Discharge: Date of : 43 Report #: [id number] Conclusion 1. Recurrent ventricular tachycardia terminated by two direct current cardioversions 2. Chronic occlusion of the mid LAD that filled distally by a patent NUNEZ graft. 3. 60% stenosis noted of the second marginal branch of the circumflex. 4. Trace aortic insufficiency of the tissue aortic valve. Recommendations ICD implantation <ELECTRONICALLY SIGNED> By: Ted Pate MD, [facility] 04/21/211709 09 1710Dapedrito Pate MD, FACC /INF
--- NOTE | 2021-04-21 19:58 | NUR ---
PT ARRIVED FROM INTERNATIONAL LOGISTICS COORDINATOR AT 1800 ACCOMPANIED BY NURSE, BEDSIDE REPORT TAKEN. PT IS HOOKED UP TO DEFIBRILLATOR, IS SINUS ELISSA WITH PVCS. A&OX4, HAS C/O RIGHT HIP PAIN WAS GIVEN PRN TYLENOL. DAUGHTER IS AT BEDSIDE
[2021-04-22 00:18] VITALS: BP 132/49
--- NOTE | 2021-04-22 02:39 | NUR ---
ASSUMED CARE OF PT AT 1900. PT IS ALERT AND ORIENTED. VSS. PERALEXIS. PT IS GOING IN AND OUT OF VTACH. DR ORTIZ NOTIFIED. PT SHOULD BE IN ICU BUT THE HOSPITAL IS OUT OF ICU BEDS. PT REFUSED TO GO TO [facility] TO BE IN ICU. PT IS CURRENTLY HOOKED TO THE DEFIBRILATER PER DR ORTIZ. AMIODORONE DRIP STARTED FOR PERIODS OF VTACH. PT IS IN SINUS RYTHM AT THIS TIME. PT IS RESTING COMFORTABLY IN BED. RESPIRATIONS ARE EVEN AND NONLABORED. WILL CONTINUE TO MONITOR PT.
[2021-04-22 04:03] VITALS: BP 160/59
[2021-04-22 04:51] LABS: HEMATOCRIT 41.1 % (42.0-52.0); HEMOGLOBIN 13.9 gm/dL (14.0-18.0); MCH 27.8 pg (26.0-34.0); MCHC 33.8 g/dL (28.0-37.0); MCV 82.3 fL (80.0-100.0); MPV 8.3 fl. (7.2-11.1); RBC 4.99 mil/uL (4.50-6.00); RDW-CV 16.3 % (10.5-14.5); WBC 10.8 thou/uL (4.0-11.0)
[2021-04-22 05:06] LABS: ALBUMIN 3.1 g/dL (3.4-5.0); CREATININE 1.1 mg/dL (0.6-1.3); MAGNESIUM 2.3 mg/dL (1.8-2.4); POTASSIUM 4.3 mmol/L (3.5-5.1); TOTAL BILIRUBIN 1.7 mg/dL (<0.1-1.0)
[2021-04-22 06:07] LABS: TROPONIN-I LEVEL 0.93 ng/mL (<0.06)
[2021-04-22 07:54] VITALS: BP 155/58
--- NOTE | 2021-04-22 12:04 | EKG ---
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 : 1945 Requested By: Ted Pate Order Number: [id number] Filiberto MD: Kvng Diaz Measurements Intervals [place] Rate: 49 P: 11 VA: 170 QRS: -20 QRSD: 165 T: -38 QT: 669 QTc: 605 Interpretive Statements Sinus bradycardia Right bundle branch block Prolonged QT interval Nonspecific T wave abnormality Compared to ECG 04/21/2021 01:34:19 Sinus rhythm no longer present Left anterior fascicular block no longer present Electronically Signed On 04-22-2021 12:04:26 CDT by Kvng Diaz [email or web address] <ELECTRONICALLY SIGNED> By: Kvng Diaz MD, FACC 04/22/21 1204 4 4 Kvng Diaz MD, FACC /EPI
--- NOTE | 2021-04-22 13:19 | 2DMMODE ---
[place] [address] 2 D/M-MODE ECHOCARDIOGRAM Name: SHIMA AMBRIZ Room: [address] IN [facility]#: [id number] Admission: 04/20/21 Attend Phys: Kareem Reddy, Discharge: Date of : 41 Date of Service: 04/22/21 1319 Report #: [id number] THIS REPORT FOR: cc: Jessica Michele MD, Lin W. MD Liston, Michael J. MD [facility] ~ APPROVED REPORT Study performed: 04/22/2021 11:11:04 EXAM: Comprehensive 2D, Doppler, and color-flow Echocardiogram Patient Location: In-Patient Room #: [facility] Status: routine BSA: 2.34 HR: 55 bpm BP: 155/58 mmHg Rhythm: NSR Other Information Study Quality: Good Indications CAD 2D Dimensions IVSd: 11.08 (7-11mm) LVOT Diam: 20.18 (18-24mm) LVDd: 53.01 mm PWd: 11.28 (7-11mm) Ascending Ao: 28.58 (22-36mm) LVDs: 32.83 (25-40mm) Aortic Root: 29.27 mm Volumes Left Atrial Volume (Systole) LA ESV Index: 38.80 mL/m2 Aortic Valve AoV Peak Doug.: 3.04 m/s AO Peak Gr.: 36.97 mmHg LVOT Max P.51 mmHg AO Mean Gr.: 22.56 mmHg LVOT Mean P.76 mmHg LVOT Max V: 0.94 m/s AO V2 VTI: 74.67 cm LVOT Mean V: 0.61 m/s AR[place]OLD (VTI): 1.07 cm2 LVOT V1 VTI: 25.05 cm AI [place]: 1.82 m/s2 [place] [address] 2 D/M-MODE ECHOCARDIOGRAM Name: SHIMA AMBRIZ Room: [address] IN ..#: [id number] Admission: 04/20/21 Attend Phys: Kareem Reddy, Discharge: Date of : 41 Date of Service: 04/22/21 1319 Report #: [id number] AI PHT: 568.94 ms Mitral Valve E/A Ratio: 2.67 MV Decel. Time: 194.76 ms MV E Max Doug.: 1.00 m/s MV PHT: 56.48 ms MVA (PHT): 3.90 cm2 TDI E/Medial E': 14.29 Medial E' Doug.: 0.07 m/s Pulmonary Valve PV Peak Doug.: 1.14 m/s PV Peak Gr.: 5.20 mmHg Tricuspid Valve RAP Estimate: 5.00 mmHg TR Peak Gr.: 46.51 mmHg RVSP: 51.00 mmHg PA Pressure: 51.00 mmHg Left Ventricle The left ventricle is normal size. There is normal LV segmental wall motion. Mild concentric left ventricular hypertrophy. Left ventricular systolic function is normal. LVEF is 55-60%. Transmitral Doppler flow pattern suggests restrictive physiology. Right Ventricle Right ventricle is mildly dilated. The right ventricular systolic function is normal. Atria Left atrium is moderately dilated. Right atrium is moderately dilated. Aortic Valve Bioprosthetic aortic valve is present. Mild aortic regurgitation. There is no aortic valvular stenosis. Mitral Valve The mitral valve is normal in structure. Mild mitral regurgitation. No evidence of mitral valve stenosis. Tricuspid Valve The tricuspid valve is normal in structure. Mild tricuspid regurgitation. Moderate pulmonary hypertension. The RVSP is 50-55 [place] [address] 2 D/M-MODE ECHOCARDIOGRAM Name: SHIMA AMBRIZ Room: [address] IN [facility]#: [id number] Admission: 04/20/21 Attend Phys: Kareem Reddy, Discharge: Date of : 41 Date of Service: 04/22/21 1319 Report #: [id number]. Pulmonic Valve The pulmonary valve is normal in structure. There is no pulmonic valvular regurgitation. Great Vessels The aortic root is normal in size. IVC is normal in size and collapses >50% with inspiration. Pericardium There is no pericardial effusion. <Conclusion> The left ventricle is normal size. Mild concentric left ventricular hypertrophy. Left ventricular systolic function is normal. LVEF is 55-60%. Transmitral Doppler flow pattern suggests restrictive physiology. Right ventricle is mildly dilated. Left atrium is moderately dilated. Right atrium is moderately dilated. Bioprosthetic aortic valve is present. Mild aortic regurgitation. Mild mitral regurgitation. Mild tricuspid regurgitation. Moderate pulmonary hypertension. The RVSP is 50-55 mmHg. IVC is normal in size and collapses >50% with inspiration. <ELECTRONICALLY SIGNED> By: Kvng Diaz MD, FACC 04/22/21 131 18 18 Kvng Diaz MD, FACC /INF
--- NOTE | 2021-04-22 14:58 | NUR ---
CM ASSESSMENT: PT A&O, NORMALLY INDEPENDENT WITH ADL'S AND ACTIVE. PT RESIDES AT HOME WITH SPOUSE. PT USES 0 DME. PT HAS 0 HX OF HH OR SNF. PHYSICIAN INFORMS OF PLAN FOR THE PT TO POSSIBLY D/C HOME TOMORROW. NO CM D/C PLANNING NEEDS ANTICIPATED. CM WILL REMAIN AVAILABLE TO ASSIST AND FOLLOW NEEDED.
--- NOTE | 2021-04-22 15:22 | NUR ---
PT A&OX4, ICD PLACED TODAY AND HR IS A PACED. PT HAS C/O RIGHT HIP AND LOWER BACK PAIN PRN HYDROCODONE ORDERED. PT IS WEARING HIS LEFT ARM IN A SLING, AND DAUGHTER ARE AT BEDSIDE.
[2021-04-22 16:00] VITALS: BP 139/65
--- NOTE | 2021-04-22 16:25 | CARD ---
[address] [address] CARDIAC CATH REPORT Name: SHIMA AMBRIZ Room: [address] IN [facility]#: [id number] Admission: 04/20/21 Attend Phys: Kareem Reddy MD Discharge: Date of : 41 Report #: [id number] THIS REPORT FOR: cc: Jessica Michele MD, Lin W. MD Liston, Michael J. MD [facility] ~ APPROVED REPORT Study performed: 04/22/2021 11:58:42 Patient Status: In-Patient Room #: 231 Event Personnel: Nabil Silva RTR Monitor, Mariely Moreno RTR Scrub, Kvng Diaz Burglar Alarm Superintendent, Sherin Cerda RN RN Exam: Insertion of Dual Chamber Permanent Pacemaker Indications: Secondary prevention for polymorphic ventricular tachycardia and cardiac arrest. The patient is a 75 year-old male with a history of Polymorphic ventricular tachycardia and cardiac arrest. Intraoperative Conscious Sedation Sedation start time: 1227 Case end Time: 1259 Fentanyl 50 mcg Versed 2 mg Implanted Devices: Rivacor 7 DR-T, Ref# [id number], Ser# [id number], Plexa ProMRI S 65 (V-Lead) Ref# [id number], Ser# [id number], Solia S 53 (A-Lead), Ref# [id number], Ser# [id number] Procedure After explaining the risks, benefits, and alternative options, informed consent was obtained from the patient. The patient was brought to the cardiac catheterization lab and the left chest and shoulder were prepped and draped in the usual fashion. During this case, Fluoroscopy and no contrast were used for imaging. IV conscious sedation was used throughout procedure with appropriate monitoring and was performed in the presence of a registered nurse who was an independent trained observer other than the physician performing the procedure. After an initial incision was made a device pocket was formed over the left pectoralis muscle using electrocautery and blunt dissection. Next the left subclavian vein was accessed [place] [address] CARDIAC CATH REPORT Name: SHIMA AMBRIZ Room: [address] IN [facility].#: [id number] Admission: 04/20/21 Attend Phys: Kareem Reddy MD Discharge: Date of : 41 Report #: [id number] Ultimately a safety J guidewire was advanced to the level of the right atrium under fluoroscopic guidance. The guidewire was externally fixed using a Margo forcep. The micropuncture kit was utilized a second time for access of the left subclavian vein. A second safety J guidewire was advanced to the right atrium under fluoroscopic guidance. Next an 8 Danish tear-away introducer was advanced over the free guidewire. The dilator and guidewire were removed and an RV pacing defibrillator lead advanced to secure position within the right ventricular apex. The lead was secured actively. The right shoulder checked and deemed to be satisfactory. There was no diaphragmatic stimulation with maximum output pacing. Pacing lead impedances were stable. After adequate slack was assured the tear-away introducer was removed. Next a 7 Danish tear-away introducer was advanced of the remaining guidewire. An atrial lead was advanced to secure position within the right atrial appendage. The lead was actively fixed. Atrial lead thresholds were checked and deemed to be satisfactory. Adequate sensing was assured. There was no phrenic nerve stimulation with maximum output pacing. The atrial and ventricular leads were then secured within the device pocket using the designated cuff and 0 silk suture. The device pocket was then flushed with antibiotic solution. Next dual-chamber pacing ICD generator was attached to the pacing ICD RV lead and the atrial lead. The device and redundant lead were then placed within the device pocket. The pocket was flushed with antibiotic solution just prior to this. The deep tissue was then closed with 2-0 Vicryl. The skin incision was then closed with a single subcuticular stitch of 4-0 Vicryl. Several Steri-Strips were placed across the incision. A sterile Telfa pad was then covered with a Tegaderm. Complications The patient tolerated the procedure well and there were no complications associated with the procedure. Findings The sensed P wave is 2.0 mV. The sensed R wave is 10.0 mV. Atrial lead pacing threshold is 1 V at 0.40 ms. Ventricular lead pacing threshold is 0.4 V at 0.40 ms. Atrial lead pacing impedance is 620 ohms. Ventricular lead pacing impedance is 700 ohms. Conclusion 1. Cardiac arrest with polymorphic ventricular tachycardia. 2. Successful placement of a pacing ICD for secondary prevention. Recommendations [address] [address] CARDIAC CATH REPORT Name: SHIMA AMBRIZ Room: M.231-P ADM IN [facility].#: [id number] Admission: 04/20/21 Attend Phys: Kareem Reddy MD Discharge: Date of : 41 Report #: [id number] 1. Follow-up site check in 1 week. 2. Follow-up device interrogation 1 to 2 months. <ELECTRONICALLY SIGNED> By: Kvng Diaz MD, FACC 04/22/21 1624 1624 1624Michaeluis felipe Diaz MD, FACC /INF
--- NOTE | 2021-04-22 16:36 | CON ---
[address] [address] CONSULTATION Name: SHIMA AMBRIZ Pedro Room: [address] IN M.R.#: [id number] Admission: 04/20/21 Attend Phys: Kareem Reddy MD Discharge: Date of : 41 Report #: [id number] THIS REPORT FOR: cc: Jessica Michele MD, Lin W. MD Blick, David R. MD [facility] ~ cc: Jessica Michele MD DATE OF CONSULTATION: 04/21/2021 CARDIOLOGY CONSULTATION HISTORY OF PRESENT ILLNESS: The patient is a 75-year-old white male who I was asked to see in the hospital today after he had a syncopal spell. The patient has an extensive past medical history. He apparently presented with shortness of breath and in 2010, underwent aortic valve replacement using a bioprosthetic aortic valve and a NUNEZ graft to the LAD. Following the procedure, he apparently went into atrial fibrillation. He was anticoagulated. He has done well since that time. Recently, he has been followed by my partner, Dr. Diaz. He apparently was admitted here to [facility] in October with pneumonia. At that time, went back into atrial fibrillation. He underwent a MALCOM by Dr. Diaz and was cardioverted and placed on amiodarone and anticoagulated with Xarelto. Echocardiogram showed normal function of the bioprosthetic valve. He last saw Dr. Diaz in 12/2020 when he was doing well. He currently goes to cardiac rehabilitation. He denies recent chest pain. He has been short of breath. He actually saw Dr. Welch recently in the pulmonary clinic. He was given an inhaler. He was doing well until yesterday. He was at home with his family. After dinner, he passed out. According to family members, they could not feel a pulse. They started CPR. Medics arrived. He has strong pulse that time. He was somewhat combative, but awake. He was brought to the emergency room by ambulance and admitted for further evaluation and treatment. He denies any seizure activity. He had no recent bleeding. Denies any vomiting, diarrhea, abdominal pain. He has had no significant swelling, fever or cough. He denied any palpitations. PAST MEDICAL HISTORY: He has only had cataract surgery, diabetes, hypertension, hyperlipidemia. CURRENT MEDICATIONS: Consist of amiodarone, amlodipine, aspirin, atenolol, Lasix, hydrochlorothiazide, insulin, losartan, pravastatin, Xarelto, terazosin. ALLERGIES: He has no known drug allergies. FAMILY HISTORY: Both [place] [address] CONSULTATION Name: SHIMA AMBRIZ Room: [address] IN ..#: [id number] Admission: 04/20/21 Attend Phys: Kareem Reddy MD Discharge: Date of : 41 Report #: [id number] SOCIAL HISTORY: He is . He and his live in [place]. He is retired from the [employer]. He smoked a pack of cigarettes a day for 20 years and quit in 1984. He does not abuse alcohol. REVIEW OF SYSTEMS: He is overweight being 6 feet tall, weighs 271 pounds. No history of a stroke. He does have COPD. He is followed by Dr. Welch. No history of liver disease, kidney disease, cancer, psychiatric illness, chronic skin condition. PHYSICAL EXAMINATION: GENERAL: Revealed a large, elderly male lying in bed. He appeared in no distress. VITAL SIGNS: He had a blood pressure of 170/60, pulse of 60. He was afebrile. HEENT: He was anicteric. Conjunctivae are pink. Mucous membranes moist. NECK: Veins were not distended. No bilateral carotid bruits were heard. CHEST: Clear to auscultation with late expiratory wheezing. CARDIAC: Regular rate and rhythm. Grade 2 systolic ejection murmur along the sternal border. ABDOMEN: Obese and soft. EXTREMITIES: Had no pitting edema. Dorsalis pedis pulse 3+. SKIN: Cool and dry. NEUROLOGIC: Nonfocal. DIAGNOSTIC DATA: ECG when he was admitted last night showed a sinus rhythm with a right bundle branch block. There was no QT prolongation. His workup in the emergency room last night, he had a CT scan of the head that showed no acute abnormality. There were atrophy and chronic small vessel changes. Chest x-ray showed no acute abnormality. LABORATORY DATA: Sodium 139, potassium 3.4, creatinine 1.2. His troponin was elevated at 3.9. In January, he had a cholesterol 158, triglycerides 69, HDL 60, LDL 85. His white blood cell count 8.2, hemoglobin 14.2. His COVID antigen stat test was negative. His urinalysis, 2+ protein. IMPRESSION AND RECOMMENDATIONS: 1. Syncopes, reason unclear. Consider a registered nurse cardiac. 2. Fvm-YY-[id number] myocardial infarction. Previous bypass surgery. Recommend cardiac catheterization. 3. Previous replacement of aortic valve. The valve appears to be functioning normally. 4. Carotid bruit. Recommend Doppler. 5. Chronic obstructive pulmonary disease. The patient followed by Pulmonary. 6. Obesity. 7. Sleep apnea. [address] [place] [address] CONSULTATION Name: SHIMA AMBRIZ Room: [address] IN [facility].#: [id number] Admission: 04/20/21 Attend Phys: Kareem Reddy MD Discharge: Date of : 41 Report #: [id number] 8. Hypertension. The patient is on a calcium roger, beta-roger and diuretic. 9. Diabetes. 10. Hyperlipidemia. The patient is on a statin drug. 11. History of atrial fibrillation. The patient on amiodarone. I would hold Xarelto at this time. <ELECTRONICALLY SIGNED> By: Ted Pate MD, FACC 04/22/21 1636 0734 [id number] Pate MD, FACC /nt
[2021-04-22 19:40] VITALS: BP 148/55
[2021-04-23] VITALS (8 sets, daily range): BP systolic 108–159; BP diastolic 36–64
--- NOTE | 2021-04-23 01:07 | NUR ---
ASSUMED CARE OF PT AT 1900. PT IS ALERT AND OREINTED. VSS. PERRLA. NO COMPLAINTS OF PAIN. PT HAS SLING ON HIS LEFT ARM TO PREVENT MOVEMENT. PT IS A PACED ON THE TELEMETRY. PT IS RESTING COMFORTABLY IN BED. RESPIRATIONS ARE EVEN AND NONLABORED. WILL CONTINUE TO MONITOR PT.
[2021-04-23 04:57] LABS: CALCIUM 8.3 mg/dL (8.5-10.1); CREATININE 1.1 mg/dL (0.6-1.3); POTASSIUM 4.4 mmol/L (3.5-5.1)
[2021-04-23] MEDS ORDERED: KLOR-CON M2020 MEQ PO (08:58)
[2021-04-23] MEDS ORDERED: MAGNESIUM400 MG PO (08:58)
[2021-04-23] MEDS ORDERED: BANOPHEN25 MG PO (11:25)
[2021-04-23] MEDS ORDERED: COZAAR 50 MG TA50 M1 PO (11:25)
[2021-04-24 00:46] VITALS: BP 159/59
[2021-04-24 04:52] VITALS: BP 125/46
[2021-04-24 08:00] VITALS: BP 116/43
--- NOTE | 2021-04-24 08:27 | NUR ---
PT IS ABLE TO COMMUNICATE HIS NEEDS TO STAFF EFFECTIVELY. CURRENT PAIN MEDICATION REGIMEN HAS BEEN ADEQUATE FOR CONTROLLING HIS PAIN UP TO 0700 TODAY. POSSIBLE DISCHARGE TODAY WITH HOME HEALTH LIKELY.
--- NOTE | 2021-04-24 10:47 | NUR ---
THIS LAST CLEANER IS IN AGREEMENT WITH DOCUMENTED EVALUATION BY LESLIE GILLESPIE FOR THIS DAY. VONNIE GEET
[2021-04-24 12:00] VITALS: BP 119/48
[2021-04-24 12:57] LABS: ABSOLUTE BASOPHILS 0.1 thou/uL (0.0-0.2); ABSOLUTE EOSINOPHILS 0.2 thou/uL (0.0-0.7); ABSOLUTE MONOCYTES 0.8 thou/uL (0.0-1.2); ABSOLUTE NEUTROPHILS 6.9 thou/uL (1.6-8.1); BASOPHILS 0.6 %; HEMATOCRIT 39.3 % (42.0-52.0); HEMOGLOBIN 13.3 gm/dL (14.0-18.0); LYMPHOCYTES 11.2 %; MCH 28.3 pg (26.0-34.0); MCHC 33.8 g/dL (28.0-37.0); MCV 83.6 fL (80.0-100.0); MONOCYTES 8.7 %; NUCLEATED RBCS 0 /100WBC; PLATELET COUNT* 131 thou/uL (150-400); POLYS 77.5 %; RDW-CV 16.6 % (10.5-14.5); WBC 8.9 thou/uL (4.0-11.0)
[2021-04-24 13:18] LABS: ALBUMIN 2.9 g/dL (3.4-5.0); CALCIUM 8.2 mg/dL (8.5-10.1); CREATININE 1.1 mg/dL (0.6-1.3); MAGNESIUM 2.1 mg/dL (1.8-2.4); POTASSIUM 4.2 mmol/L (3.5-5.1); TOTAL BILIRUBIN 1.1 mg/dL (<0.1-1.0); TOTAL PROTEIN 6.8 g/dL (6.4-8.2)
[2021-04-24 16:00] VITALS: BP 144/51
--- NOTE | 2021-04-24 16:17 | NUR ---
PLAN OF CARE: PHYSICIAN INFORMS OF PLAN FOR THE PT TO D/C TODAY. PT MEDICALLY STABLE FOR D/C AND HAS BEEN ACCEPTED TO INPT ARU. INPT ARU ABLE TO ACCEPT PT PENDING NEGATIVE RAPID COVID RESULTS. PT AND DTR INFORMED AND ARE IN AGREEMENT. CM WILL REMAIN AVAILABLE TO ASSIST AND FOLLOW NEEDED.
== END 2021-04-24 18:15 | DRG 242 ==
LOC: M.ERS 20:55 → M.TBA-ER 23:00 → M.2W 23:00
PROVIDERS: Emergency Medicine; Internal Medicine; Internal Medicine Cardiovascular Disease; ADMIT Internal Medicine; ATTEND Internal Medicine
PROC: B213YZZ Fluoroscopy of Multiple Coronary Artery Bypass Grafts using Other Contrast (ICD-10-PCS; principal; 2021-04-21)
PROC: B211YZZ Fluoroscopy of Multiple Coronary Arteries using Other Contrast (ICD-10-PCS; principal; 2021-04-21)
PROC: B310YZZ Fluoroscopy of Thoracic Aorta using Other Contrast (ICD-10-PCS; principal; 2021-04-21)
PROC: 5A2204Z Restoration of Cardiac Rhythm, Single (ICD-10-PCS; principal; 2021-04-21)
PROC: B218YZZ Fluoroscopy of Left Internal Mammary Bypass Graft using Other Contrast (ICD-10-PCS; principal; 2021-04-21)
PROC: 4A023N7 Measurement of Cardiac Sampling and Pressure, Left Heart, Percutaneous Approach (ICD-10-PCS; principal; 2021-04-21)
PROC: 0JH606Z Insertion of Pacemaker, Dual Chamber into Chest Subcutaneous Tissue and Fascia, Open Approach (ICD-10-PCS; 2021-04-22)
PROC: 02H63JZ Insertion of Pacemaker Lead into Right Atrium, Percutaneous Approach (ICD-10-PCS; 2021-04-22)
PROC: 02HK3JZ Insertion of Pacemaker Lead into Right Ventricle, Percutaneous Approach (ICD-10-PCS; 2021-04-22)
DX: I47.2 Ventricular tachycardia (principal); I21.A1 Myocardial infarction type 2; R77.8 Other specified abnormalities of plasma proteins; J44.9 Chronic obstructive pulmonary disease, unspecified; I10 Essential (primary) hypertension; E11.9 Type 2 diabetes mellitus without complications; E78.5 Hyperlipidemia, unspecified; I48.91 Unspecified atrial fibrillation; E87.6 Hypokalemia; E83.42 Hypomagnesemia; I45.10 Unspecified right bundle-branch block; E78.00 Pure hypercholesterolemia, unspecified; T67.1XXA Heat syncope, initial encounter; G47.33 Obstructive sleep apnea (adult) (pediatric); X58.XXXA Exposure to other specified factors, initial encounter; E66.9 Obesity, unspecified; Z20.822 Contact with and (suspected) exposure to COVID-19; Y93.89 Activity, other specified; Y92.89 Other specified places as the place of occurrence of the external cause; Z98.49 Cataract extraction status, unspecified eye; Z79.01 Long term (current) use of anticoagulants; Z79.4 Long term (current) use of insulin; Z79.899 Other long term (current) drug therapy; Y99.8 Other external cause status; Z68.33 Body mass index [BMI] 33.0-33.9, adult; Z95.1 Presence of aortocoronary bypass graft

== ENCOUNTER 2021-04-24 16:35 | Inpatient (IN) | payer MEDICARE, OTHER ==
[~2021-04-24] VITALS: Ht 182.9 cm; Wt 122.9 kg
[~2021-04-24 16:35] MED LIST changes: +BANOPHEN25 MG PO; +COZAAR 50 MG TA50 M1 PO; +EYE DROPS; +KLOR-CON M2020 MEQ PO; +LIPITOR10 MG PO; +MAGNESIUM400 MG PO
[2021-04-24 20:00] VITALS: BP 147/63
[2021-04-25 04:39] LABS: HEMATOCRIT 38.8 % (42.0-52.0); HEMOGLOBIN 13.1 gm/dL (14.0-18.0); MCH 28.3 pg (26.0-34.0); MCHC 33.8 g/dL (28.0-37.0); MCV 83.6 fL (80.0-100.0); MPV 8.1 fl. (7.2-11.1); RBC 4.64 mil/uL (4.50-6.00); RDW-CV 16.2 % (10.5-14.5); WBC 8.4 thou/uL (4.0-11.0)
[2021-04-25 04:54] LABS: CALCIUM 8.2 mg/dL (8.5-10.1); CREATININE 1.2 mg/dL (0.6-1.3); POTASSIUM 4.5 mmol/L (3.5-5.1)
--- NOTE | 2021-04-25 05:32 | NUR ---
ASSUMED CARES AT 1919. PT ARRIVED AT 1814. ALERT AND ORIENTED X 4. PLEASANT. AICD TO LEFT CHEST. INCISION WITH STERI STRIPS. NO LIFTING OVER 10 LBS AND NO RAISING UP OVER SHOULDER TO LUE. RIGHT KNEE SCAB ABRASION. LUE IMMOBILIZER PLACED AT NIGHT. MOD ASSIST WITH GAIT BELT AND WALKER. UP TO BATHROOM TO VOID. XANAX GIVEN PER PT REQUEST. C/O PAIN TO BACK/HIP/LEG. NORCO GIVEN. WOUND RN CONSULTED FOR OPEN AREA IN BETWEEN BUTTOCKS. PT SLEPT MOST OF THE NIGHT. CALL LIGHT IN REACH AND BED ALARM ON.
[2021-04-25 07:49] VITALS: BP 169/66
--- NOTE | 2021-04-25 09:09 | NUR ---
WOUND NURSE: PATIENT SEEN TO ADDRESS SKIN LESIONS. PATIENT WITH LINEAR FISSURE MEASURING 4.0 X 0.5 X 0.1 CM. MINIMAL AMOUNT OF SEROUSANGUINOUS DRAINAGE WHEN CLEANSED. NO PERIWOUND REDNESS, WARMTH, OR INDURATION. PATIENT WAS BATHED WITH SOAP AND WATER. APPLIED SKIN PREP TO PERIWOUND. APPLIED AQUACEL Ag UNDER SURESITE TRANSPARENT DRESSING. THIS WAS TOLERATED WELL BY THE PATIENT. PATIENT HAS CONTUSION ON THE RIGHT KNEE WHICH HAS INTACT SCAB AND LOCALIZED SWELLING. RECOMMEND MONITOR FOR UNTOWARD CHANGES, LEAVE OPEN TO AIR. CLOSED INCISION ON LEFT CHEST WITH MINOR ECCYMOSIS, NO REDNESS, WARMTH, OR INDURATION NOTED. STERISTRIPS ARE INTACT. PATIENT INSTRUCTED ON MEASURES TO PROMOTE HEALING AND PREVENT COMPLICATIONS. STATES HE UNDERSTANDS.
--- NOTE | 2021-04-25 12:25 | NUR ---
Nutrition: Pt admitted to rehab with cardiac debility. Has a linear fissure. Albumin 2.9, BG 176. Wt: 250#. CHO controlled diet. H/o HTN, DM, HLD, CAD. Per RN, pt is eating fine. Assessed at low nutrition risk. Will follow weekly on rehab unit.
--- NOTE | 2021-04-25 18:07 | NUR ---
PT WORKED WITH THERAPIES. UP WITH GAIT BELT, WALKER, AND ASSIST X1. SCHEDULED AND PRN PAIN MEDICATION GIVEN. SEEN BY WOUND CARE NURSE, AKI, FOR AREA AT THE TOP OF HIS BUTTOCKS. VENOUS DOPPLER TO BLE TO ASSESS FOR DVT NEG. SCAB TO R KNEE AND L CHEST NIEVES. ANTIBIOTIC OINTMENT APPLIED. PACEMAKER INTEROGATED TODAY. PRN MIRALAX GIVEN FOR CONSTIPATION. CALL LIGHT IN REACH. FALL PRECAUTIONS IN PLACE.
[2021-04-25 20:00] VITALS: BP 159/44
--- NOTE | 2021-04-26 05:21 | NUR ---
ASSUMED CARE AT 1915. PATIENT IN RECLINER VISITING WITH DAUGHTER. UP WITH ONE, GAIT BELT, WALKER. SOMETIMES NEEDS ASSIST GOING FROM LYING TO SITTING WHILE IN BED. HAS VOIDED STANDING AT TOILET THIS SHIFT. WEARING LUE IMMOBILIZER WHILE IN BED. INCISION TO LT CHEST NIEVES WITH STERISTRIPS. BACTROBAN OINT APPLIED TO INCISION AREA, AND ALSO SCAB ON RT KNEE. DENIES SOA, OR DIZZINESS. DOES STATE BEING TIRED. DRESSING TO BUTTOCKS C/D/I. BILAT LE EDEMA NOTED, LEGS ELEVATED WHILE IN RECLINER AND HEELS OFFLOADED ON PILLOWS WHILE IN BED. NO C/O PAIN. HOURLY ROUNDS CONTINUE. BED ALARM ON. CALL LITE IN REACH.
[2021-04-26 08:20] VITALS: BP 146/45
--- NOTE | 2021-04-26 17:44 | NUR ---
PATIENT COMPLETED THERAPIES THIS SHIFT ORDERED. UP WITH ASSISTANCE; GAIT BELT AND WALKER. PHOTOS TAKEN THIS SHIFT DRESSING NEEDED REAPPLIED TO COCCYX. ABX OINTMENT TO KNEE AND CHEST SITE. NO COMPLAINTS OF PAIN. WAFFLE CUSHION IN PLACE WHILE IN CHAIR. IMMOBILIZER TO LEFT ARM AT HS. BM NOTED X 2 THIS SHIFT.
[2021-04-26 20:00] VITALS: BP 146/58
[2021-04-27 07:50] VITALS: BP 157/55
--- NOTE | 2021-04-27 17:23 | NUR ---
PATIENT UP TO CHAIR THIS SHIFT. AMBULATING TO BATHROOM WITH ASSISTANCE, GAIT BELT AND WALKER. NO COMPLAINTS OF PAIN. DRESSING TO COCCYX REMAINS IN PLACE. ABX OINTMENT APPLIED TO PACER SITE AND RIGHT KNEE ORDERED. PATIENT SAT AT SINK THIS AFTERNOON AND WASHED UP, PERFORMED SELF GROOMING WITH SUPERVISION. VOIDING PER TOILET, NO BM NOTED THIS SHIFT. INSULIN GIVEN WITH MEALS ORDERED, INSULIN WAS HELD THIS AM AT BREAKFAST FOR GLUCOSE OF 71.
[2021-04-27 20:42] VITALS: BP 167/55
--- NOTE | 2021-04-28 00:08 | NUR ---
ASSUMED CARE AT 1915. PATIENT RESTING IN BED. TAKES PILLS WHOLE WITH WATER. TURNS SELF. UP WITH CGA, GAIT BELT, WALKER. VOIDS STANDING AT TOILET. ABLE TO GET LEGS INTO BED PER SELF. INCISION FROM AICD PLACEMENT LESS REDDENED, WELL APPROXIMATED, STERI STRIPS IN PLACE. BACTROBAN OINT APPLIED TO AICD WOUND, AND RT KNEE SCAB. BLE VENOUS STASIS EDEMA NOTED TO SHINS AND CALVES WITH REDNESS NOTED. BILAT FEET ARE NOT RED, SKIN INTACT. ICE CREAM FOR HS SNACK. HOURLY ROUNDS CONTINUE. BED ALARM ON. CALL LITE IN REACH.
[2021-04-28 04:24] LABS: HEMATOCRIT 41.5 % (42.0-52.0); MCH 28.1 pg (26.0-34.0); MCHC 33.7 g/dL (28.0-37.0); MCV 83.4 fL (80.0-100.0); MPV 7.6 fl. (7.2-11.1); RBC 4.97 mil/uL (4.50-6.00); RDW-CV 17.2 % (10.5-14.5); WBC 11.7 thou/uL (4.0-11.0)
[2021-04-28 05:13] LABS: CALCIUM 8.7 mg/dL (8.5-10.1); CREATININE 1.2 mg/dL (0.6-1.3); MAGNESIUM 2.2 mg/dL (1.8-2.4); POTASSIUM 3.9 mmol/L (3.5-5.1)
--- NOTE | 2021-04-28 06:09 | NUR ---
SLEPT MOST OF THE NIGHT EXCEPT WHEN UP TO VOID. UP WITH CGA, GAIT BELT, WALKER. VOIDS STANDING INTO TOILET. VENOUS BLOOD SUGAR THIS AM WAS 70 AT 0403, GIVEN PUDDING AND HUONG CRACKERS. PATIENT STATES HE EATS BETTER HERE THAN AT HOME AND EXERCISES MORE WITH THERAPIES THAN HE DOES AT HOME. PATIENT WILL DISCUSS WITH THE HOSPITALIST. HOURLY ROUNDS CONTINUE. BED ALARM ON. CALL LITE IN REACH.
[2021-04-28 08:00] VITALS: BP 166/58
--- NOTE | 2021-04-28 16:53 | NUR ---
PT WAS UP WITH WALKER AND GAIT BELT TODAY. COMPLETED ALL THERAPIES. PT HAD BM TODAY 04-28-21. PT BS HAVE BEEN LOWER TODAY WITH 105 AM 114 NOON AND 85 AT 1600. PT DID HAVE ALL 17 UNITS OF LISPRO AT AM AND NOON. I DID SEND A MSG TO DR. CHACON REQUARDING THE [address] CHACON REPLIED AND WILL PUT IN NEW ORDERS FOR ALL THE INSULIN, BUT HOLD FOR DINNER. CALL LIGHT IN REACH AND FALL PRECAUTIONS IN PLACE.
[2021-04-28 19:00] VITALS: BP 134/49
--- NOTE | 2021-04-29 05:53 | NUR ---
ASSUMED CARES AT 1920. ALERT AND ORIENTED. PLEASANT. DENIED ANY NEED FOR PAIN MEDS FOR RIGHT HIP PAIN. XANAX GIVEN PER REQUEST. MIN ASSIST WITH WALKER UP TO BATHROOM. DRSG TO COCCYX CHANGED. STERI STRIPS TO LEFT CHEST INCISION DYER ASSISTANT. SLEPT OFF AND ON. CALL LIGHT IN REACH AND BED ALARM ON.
[2021-04-29 07:52] VITALS: BP 171/54
--- NOTE | 2021-04-29 16:12 | NUR ---
Patient up gait belt and walker. Patient completed all therapies. No complaints of pain. Patient up to rest room with walkerheidi today. Call light in reach and fall precautions in place.
[2021-04-29 19:00] VITALS: BP 160/47
[2021-04-30 04:49] LABS: HEMATOCRIT 40.9 % (42.0-52.0); HEMOGLOBIN 13.9 gm/dL (14.0-18.0); MCH 28.1 pg (26.0-34.0); MCHC 33.9 g/dL (28.0-37.0); MPV 7.6 fl. (7.2-11.1); RBC 4.92 mil/uL (4.50-6.00); RDW-CV 17.1 % (10.5-14.5); WBC 10.7 thou/uL (4.0-11.0)
--- NOTE | 2021-04-30 04:56 | NUR ---
ASSUMED CARE AT 1920. ALERT AND ORIENTED. PLEASANT. DENIED ANY NEED FOR PAIN MEDS. SBA WITH GAIT BELT AND WALKER. UP TO BATHROOM. DRSG TO COCCYX INTACT. 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 HS SNACK GIVEN. SLEPT MOST OF THE NIGHT. CALL LIGHT IN REACH AND BED ALARM ON.
[2021-04-30 05:17] LABS: CALCIUM 8.7 mg/dL (8.5-10.1); CREATININE 1.2 mg/dL (0.6-1.3); POTASSIUM 3.6 mmol/L (3.5-5.1)
[2021-04-30 07:41] VITALS: BP 154/57
--- NOTE | 2021-04-30 08:14 | NUR ---
INITIAL ASSESSMENT: PATIENT ADMITTED TO THE [facility] ACUTE REHAB UNIT ON 04/24/21 WITH A DIAGNOSIS OF CARDIAC DEBILITY. PATIENT ALERT AND ORIENTED. PRIOR TO ADMIT PT RESIDED AT HOME WITH SPOUSE. PT NORMALLY INDEPENDENT WITH ADL'S. PT USED 0 DME PRIOR TO ADMIT. PT HAS 0 HX OF HH OR SNF. PT'S DTR PETE INFORMS THAT SHE IS SUPPORTIVE AND ABLE TO ASSIST THE PT IF NEEDED AT D/C, HER MOTHER IS NOT ABLE TO PHYSICALLY ASSIST HIM. CM ORIENTED THE PT AND HIS DTR TO THE [facility]] ARU AND PROCESSES, RESIDENTS RIGHTS INFO, TEAM CONFRENCE, AND TO THE ROLE OF CM. CM WILL REMAIN AVAILABLE TO ASSIST AND FOLLOW NEEDED.
--- NOTE | 2021-04-30 09:45 | NUR ---
WOUND NURSE: PATIENT SEEN FOR FOLLOW UP ASSESSMENT OF COCCYGEAL FISSURE WHICH IS NOW HEALED WITH PINK INTACT EPITHELIAL TISSUE IN THE WOUND BED. DRESSING TO THIS AREA SUBSEQUENTLY DISCONTINUED. RECOMMEND USE OF PHYTOPLEX MOISTURE BARRIER CLAUDIO Q SHIFT PRN FOR PROTECTION. RIGHT KNEE WITH SIGNIFICANTLY LESS REDNESS AND EDEMA AND INTACT STABLE SCAB IN PLACE. PACEMAKER SITE WITHOUT ANY DRAINAGE, REDNESS, WARMTH, OR INDURATION. STERISTRIPS ARE INTACT OVER INCISION.
[2021-04-30 14:53] VITALS: BP 126/54
[2021-04-30 15:14] LABS: URINE BILIRUBIN NEGATIVE (Negative); URINE BLOOD NEGATIVE (Negative); URINE CLARITY CLEAR; URINE COLOR YELLOW; URINE GLUCOSE-RANDOM NEGATIVE (Negative); URINE KETONES NEGATIVE (Negative); URINE LEUKOCYTES NEGATIVE (Negative); URINE NITRITE NEGATIVE (Negative); URINE PROTEIN NEGATIVE (Negative)
--- NOTE | 2021-04-30 16:06 | NUR ---
TEAM CONFRENCE MEETING HELD TODAY. PLAN FOR THE PT'S SPOUSE AND DTR TO COME IN FOR FAMILY TRAINING WEDNESDAY AND FOR THE PT TO D/C HOME WEDNESDAY. PT, SPOUSE AND DTR INFORMED AND ARE IN AGREEMENT. PT'S DTR INFORMED THAT THE PT WILL NEED WALKER AND SHOWER BENCH. PT'S DTR INFORMS THAT SHE HAS A BATH BENCH FOR THE PT TO USE. CM TO ASSIST WITH WALKER. PT PROGRESSING TOWARDS GOALS, BUT BARRIERS ARE COMPLEX EXECUTIVE FUNCTIONING, MEMORY, AND BACK PAIN WHICH IMPACTS HIS BALANCE AND FETIGUE. CM WILL REMAIN AVAILABLE TO ASSIST AND FOLLOW NEEDED.
--- NOTE | 2021-04-30 16:43 | NUR ---
PT UP WITH GAIT BELT, WALKER, AND MIN ASSIST. LEX HOSE PLACED. IMOBILIZER TO BE WORN AT HS. NO LIFTING OR RAISING LUE ABOVE HIS HEAD. PT AWARE OF THESE INSTRUCIONS. CALL LIGHT IN REACH. FALL PRECAUTIONS IN PLACE.
[2021-04-30 20:04] VITALS: BP 134/48
--- NOTE | 2021-05-01 06:24 | NUR ---
ASSUMED CARE AT 1920. ALERT AND ORIENTED. PLEASANT. DENIED ANY NEED FOR PAIN MEDS. SBA WITH GAIT BELT AND WALKER. UP TO BATHROOM. LEFT CHEST INCISION WITH STERI STRIPS HEALING. TEDS OFF AND LEGS UP ONTO PILLOW AT NIGHT. SLEPT OFF AND ON. CALL LIGHT IN REACH AND BED ALARM ON.
[2021-05-01 07:49] VITALS: BP 145/55
--- NOTE | 2021-05-01 17:43 | NUR ---
PT TRANSFERED TO ROOM 330. PT IN AGREEMENT WITH ROOM CHANGE. TRIPLE ANTIBIOTIC OINTMENT D/C'D BY DR NGUYEN. DOES NOT WANT ANYTHING PLACED OVER L CHEST INCISION. PT TO HAVE FAMILY TRAINING [place]. UP WITH GAIT BELT, WALKER, AND STB ASSIST. CALL LIGHT IN REACH. FALL PRECAUTIONS IN PLACE.
[2021-05-01 20:00] VITALS: BP 124/45
--- NOTE | 2021-05-02 00:49 | NUR ---
ASSUMED CARE AT 1930. PATIENT RESTING IN RECLINER. ASSISTED TO BED. UP WITH SBA, GAIT BELT, WALKER. VOIDS STANDING PER TOILET. STEADY GAIT. LEX HOSE REMOVED AT HS AND LOTION APPLIED TO BILAT FEET. SKIN AT BILAT SHINS MUCH IMPROVED, LESS RED, BUT STILL EDEMATOUS. HAD CHOCOLATE ICE CREAM, HUONG CRACKERS FOR HS SNACK. HOURLY ROUNDS CONTINUE. BED ALARM ON. CALL LITE IN REACH.
--- NOTE | 2021-05-02 05:35 | NUR ---
SLEPT MOST OF THE NIGHT. DID GET UP TO VOID PER TOILET. NO C/O PAIN. TURNS SELF. DOES WELL GETTING IN AND OUT OF BED. HOURLY ROUNDS CONTINUE. BED ALARM ON. CALL LITE IN REACH.
[2021-05-02 08:10] VITALS: BP 123/47
[2021-05-02 10:45] VITALS: BP 123/47
--- NOTE | 2021-05-02 13:47 | NUR ---
THIS CODING QUALITY ANALYST IS IN AGREEMENT WITH DOCUMENTED TREATMENT NOTE AND PROGRESS NOTE BY LESLIE GILLESPIE FOR THIS DAY. MARIBETH RO, VONNIET
[2021-05-02] MEDS ORDERED: LIDODERM1 EACH TOP (15:12)
--- NOTE | 2021-05-02 16:25 | NUR ---
PATIENT COMPLETED THERAPY THIS SHIFT ORDERED. UP WITH SBA GAIT BELT AND WALKER. LEX HOSE IN PLACE. PATIENT TO DISCHARGE HOME THIS EVENING. VERBALIZES UNDERSTANDING OF PAPERWORK AND SCRIPTS. PATIENT TAKEN OUT VIA WHEELCHAIR WITH ALL BELONGINGS AND FAMILY.
== END 2021-05-02 16:27 | disposition home or self-care (01) | DRG 948 ==
LOC: M.REH 16:35
PROVIDERS: Internal Medicine; ADMIT Physical Medicine & Rehabilitation; ATTEND Physical Medicine & Rehabilitation
DX: R53.81 Other malaise (principal); I25.10 Atherosclerotic heart disease of native coronary artery without angina pectoris; I10 Essential (primary) hypertension; E11.9 Type 2 diabetes mellitus without complications; E78.5 Hyperlipidemia, unspecified; R00.0 Tachycardia, unspecified; I48.91 Unspecified atrial fibrillation; Z95.1 Presence of aortocoronary bypass graft; Z79.01 Long term (current) use of anticoagulants; Z97.4 Presence of external hearing-aid; Z98.49 Cataract extraction status, unspecified eye; Z98.52 Vasectomy status; Z95.810 Presence of automatic (implantable) cardiac defibrillator; Z87.891 Personal history of nicotine dependence

== ENCOUNTER 2021-05-22 15:21 | Inpatient (IN) | payer MEDICARE, OTHER ==
[~2021-05-22] VITALS: Ht 182.9 cm; Wt 120.2 kg
[~2021-05-22 15:21] MED LIST changes: +LIDODERM1 EACH TOP
[2021-05-22 15:28] VITALS: BP 84/45
[2021-05-22] MEDS ORDERED: ALPRAZOLAM 0.50.5 M1 PO (15:34)
[2021-05-22] MEDS ORDERED: SILDENAFIL CITR50 MG PO (15:35)
[2021-05-22] MEDS ORDERED: TERAZOSIN HCL5 MG PO (15:36)
--- NOTE | 2021-05-22 15:56 | EKG ---
[place] [address] ELECTROCARDIOGRAM REPORT Name: SHIMA AMBRIZ Room: [facility]#: [id number] Admission: 05/22/21 Attend Phys: Discharge: Date of : 41 Date of Service: 05/22/21 1524 Report #: [id number] THIS REPORT FOR: //name// [facility] ED Test Date: 2021-05-22 Test Time: 15:24:52 Pat Name: SHIMA AMBRIZ Department: Room: Gender: Huller Operator: [facility] : 1945 Requested By: Avery Rubio Order Number: [id number] MD: Kvng Diaz Measurements Intervals [place] Rate: 67 P: 59 MD: 52 QRS: -49 QRSD: 162 T: 1 QT: 573 QTc: 605 Interpretive Statements Sinus rhythm Short MD interval Right bundle branch block Compared to ECG 04/22/2021 08:15:21 Short MD interval now present Sinus bradycardia no longer present Prolonged QT interval no longer present T-wave abnormality no longer present Electronically Signed On 05-22-2021 15:56:19 CDT by Kvng Diaz [email or web address] <ELECTRONICALLY SIGNED> By: Kvng Diaz MD, FAC 05/22/21 1556 1524 1524 Kvng Diaz MD, [facility] /EPI
[2021-05-22 16:00] LABS: ABSOLUTE BASOPHILS 0.1 thou/uL (0.0-0.2); ABSOLUTE EOSINOPHILS 0.1 thou/uL (0.0-0.7); ABSOLUTE LYMPHOCYTES 1.3 thou/uL (0.8-5.3); ABSOLUTE MONOCYTES 0.8 thou/uL (0.0-1.2); ABSOLUTE NEUTROPHILS 8.3 thou/uL (1.6-8.1); BASOPHILS 0.9 %; EOSINOPHILS 1.2 %; HEMOGLOBIN 14.2 gm/dL (14.0-18.0); LYMPHOCYTES 12.5 %; MCH 27.3 pg (26.0-34.0); MCV 82.6 fL (80.0-100.0); MONOCYTES 7.9 %; NUCLEATED RBCS 0 /100WBC; PLATELET COUNT* 165 thou/uL (150-400); POLYS 77.5 %; RDW-CV 17.2 % (10.5-14.5); WBC 10.7 thou/uL (4.0-11.0)
[2021-05-22 16:09] LABS: CALCIUM 8.7 mg/dL (8.5-10.1); CREATININE 1.9 mg/dL (0.6-1.3); POTASSIUM 3.8 mmol/L (3.5-5.1)
[2021-05-22 16:14] LABS: ALBUMIN 3.4 g/dL (3.4-5.0); TOTAL BILIRUBIN 0.9 mg/dL (<0.1-1.0); TOTAL PROTEIN 7.2 g/dL (6.4-8.2)
[2021-05-22 21:25] VITALS: BP 128/83
[2021-05-23 01:25] VITALS: BP 161/64
[2021-05-23 05:00] LABS: URINE BILIRUBIN NEGATIVE (Negative); URINE BLOOD TRACE (Negative); URINE CLARITY CLEAR; URINE COLOR YELLOW; URINE GLUCOSE-RANDOM TRACE (Negative); URINE KETONES NEGATIVE (Negative); URINE LEUKOCYTES-REFLEX NEGATIVE (Negative); URINE NITRITE-REFLEX NEGATIVE (Negative); URINE PROTEIN NEGATIVE (Negative); URINE SPECIFIC GRAVITY 1.025 (1.005-1.030); URINE UROBILINOGEN 0.2 E.U./dl (0.2-1.0)
[2021-05-23 05:30] VITALS: BP 165/64
[2021-05-23 09:27] VITALS: BP 125/102
--- NOTE | 2021-05-23 12:41 | NUR ---
DR. FORBES PAGED VIA PAGING SERVICE PER PT REQUEST FOR SHORT ACTING INSULIN.
[2021-05-23 13:01] VITALS: BP 182/68
--- NOTE | 2021-05-23 16:35 | CON ---
[address] [address] CONSULTATION Name: SHIMA AMBRIZ Room: [place] [address] ADM IN [facility].#: [id number] Admission: 05/23/21 Attend Phys: Corin Jurado Discharge: Date of : 41 Report #: [id number] THIS REPORT FOR: cc: Jessica Michele MD, Lin W. MD Blick, David R. MD FAC ~ cc: Jessica Michele MD DATE OF CONSULTATION: 05/23/2021 CARDIOLOGY CONSULTATION HISTORY OF PRESENT ILLNESS: The patient is a 75-year-old white male who I was asked to see in the emergency room today after he apparently had a discharge of his defibrillator. The patient apparently presented with shortness of breath in 2010. He was found to have aortic valve disease and underwent aortic valve replacement using a bioprosthetic aortic valve and a NUNEZ graft to the LAD at [facility]. He does have a history of paroxysmal atrial fibrillation. In October of this year, he had pneumonia, went into atrial fibrillation and had a MALCOM and cardioversion by Dr. Diaz. He was placed on amiodarone and anticoagulated with Xarelto. Echocardiogram at that time showed normal function of the bioprosthetic valve. He was admitted to [place] in April of this year when he passed out at home and family members started CPR. The patient did have elevated troponin. I actually performed a cardiac catheterization in April through the femoral artery that showed chronic occlusion of the LAD that filled by the NUNEZ graft. No significant disease in the circumflex and in right coronary artery, there was only trace aortic insufficiency of the tissue valve. The patient had an echocardiogram in April that showed ejection fraction 60%, biatrial enlargement, normal function of the bioprosthetic aortic valve with mild aortic regurgitation. Dr. Diaz then implanted a permanent defibrillator. The patient was then sent to rehabilitation. He was just sent home two weeks ago. He continues to use a walker. The patient notes that two nights ago, he was in bed, using an inhaler. He then felt a discharge of his defibrillator. His brought him to the emergency room yesterday. He was admitted for further evaluation and treatment. He denies any recent chest pain. He has been some shortness of breath. Denies any palpitations. PAST MEDICAL HISTORY: Cataract extraction, diabetes, hypertension, hyperlipidemia. CURRENT MEDICATIONS: Consist of Lasix, Xarelto, losartan, Hytrin, hydrochlorothiazide, atenolol, insulin, amiodarone. ALLERGIES: He [place] [address] CONSULTATION Name: SHIMA AMBRIZ Room: [address] IN [facility].#: [id number] Admission: 05/23/21 Attend Phys: Corin Jurado Discharge: Date of : 41 Report #: [id number] FAMILY HISTORY: His mother and father both had heart disease. SOCIAL HISTORY: He is and his live in [place]. Retired from the [employer], smoker, quit 30 years ago. Does not abuse alcohol. REVIEW OF SYSTEMS: He is overweight being 6 feet tall, 271 pounds. He has sleep apnea. He has COPD. He is followed by Dr. Welch. No history of liver disease, kidney disease, cancer, psychiatric illness, chronic skin condition. PHYSICAL EXAMINATION: GENERAL: Revealed a large, elderly male, lying in bed, appeared in no distress. VITAL SIGNS: He had a blood pressure 130/80, pulse 60. He is afebrile. HEENT: He was anicteric. Conjunctivae pink. Mucosa is moist. NECK: Veins not appear distended. No carotid bruits. CHEST: Clear to auscultation. HEART: Regular rate and rhythm. ABDOMEN: Obese. EXTREMITIES: Had no pitting edema. SKIN: Cool and dry. NEUROLOGIC: Nonfocal. DIAGNOSTIC DATA: His ECG showed an atrial paced rhythm with a right bundle branch block. His chest x-ray showed cardiomegaly, clear lung styles. LABORATORY DATA: Potassium 3.8, creatinine 1.9. His troponin 0.06. His TSH in April was 1.8. White blood cell count 10.7, hemoglobin 14.2. IMPRESSION AND RECOMMENDATIONS: 1. Discharged with defibrillator. The defibrillator will be interrogated. 2. Previous aortic valve replacement using a tissue valve. It appears to be functioning normally. 3. History of atrial fibrillation. The patient is on amiodarone and anticoagulated with Eliquis. 4. Diabetes. 5. Hypertension. 6. Hyperlipidemia. 7. Obesity. 8. Chronic obstructive pulmonary disease. <ELECTRONICALLY SIGNED> By: Ted Pate MD, [facility] 05/23/21 1635 0805 [id number] Marlys Pate MD, FACC /nt
[2021-05-23 16:56] VITALS: BP 177/74
--- NOTE | 2021-05-23 17:30 | NUR ---
PT TRANSFERED FROM ER TO ROOM 214. A&OX 4, PWD. LUNGS CLEAR, HEART TONES REG. +BS X 4 QUADS. PEDAL PULSES PRESENT. SLIGHT 1+ LOWER LEG EDEMA NOTED. SL INTACT AND PATENT. ALL QUESTIONS ANSWERED. CALLED FOR PT DINNER AND IT WAS DELIVERED TO ROOM. PT GIVEN MEDICATION ORDERED. NO C/O AT THIS TIME. LAST BM YESTERDAY.
[2021-05-23 20:30] VITALS: BP 160/67
[2021-05-24 00:13] VITALS: BP 143/58
[2021-05-24 04:28] LABS: HEMOGLOBIN 13.5 gm/dL (14.0-18.0); MCH 27.2 pg (26.0-34.0); MCHC 32.8 g/dL (28.0-37.0); MCV 82.7 fL (80.0-100.0); MPV 8.1 fl. (7.2-11.1); RBC 4.95 mil/uL (4.50-6.00); RDW-CV 16.8 % (10.5-14.5); WBC 9.6 thou/uL (4.0-11.0)
--- NOTE | 2021-05-24 04:42 | NUR ---
PT ALERT AND ORIENTED, UP STANDBY WITH WALKER TO BATHROOM, ROOM AIR. NO EPISODES ON MONITOR THIS SHIFT. NO REPORTS OF SOA, PAIN OR NAUSEA. HE HAS SLEPT VERY WELL THIS SHIFT. RECEIVED ALL MEDS SCHEDULED.
[2021-05-24 05:03] LABS: ALBUMIN 3.1 g/dL (3.4-5.0); CREATININE 1.3 mg/dL (0.6-1.3); TOTAL BILIRUBIN 0.8 mg/dL (<0.1-1.0); TOTAL PROTEIN 6.8 g/dL (6.4-8.2)
[2021-05-24 07:50] VITALS: BP 139/80
[2021-05-24] MEDS ORDERED: PACERONE 200 M200 M1 PO (08:37)
[2021-05-24 10:59] VITALS: BP 139/80
--- NOTE | 2021-05-24 13:27 | NUR ---
ASSUMED CARE OF PT AT 0730. PT A&0X4, DENIES ANY PAIN OR SHORTNESS OF BREATH AT THIS TIME. TRACING A/AV PACED ON THE SENIOR NETWORK SYSTEMS ENGINEER. ON RA SAT UPPER 90'S. PT UP WITH 1 ASSIST SBA AND WALKER TO BATHROOM. PT GOAL FOR TODAY IS DISCHARGE PLANNING TO HOME IF CLEARED BY CARDIOLOGY. AM ASSESSMENT CHARTED. MEDICATIONS PER DEC. PT REPOSITIONS SELF. HOURLY ROUNDING OBSERVED. BED IN LOW POSITION. CALL LIGHT WITHIN REACH. WILL CONTINUE PLAN OF CARE.
--- NOTE | 2021-05-24 14:20 | NUR ---
DISCHARGE ORDERS RECEIVED. DISCHARGE INSTRUCTIONS, CARE NOTES, E SCRIPT AND FOLLOW UP APPT GIVEN TO PT. PT COMMUNICATES UNDERSTANDING OF DISCHARGE TEACHING. IV AND MASS SPECTROSCOPIST REMOVED. PT DISCHARGED WITH ALL BELONGINGS AND PAPERWORK VIA WHEELCHAIR WITH NURSING STAFF TO SPOUSE OWN PERSONAL VEHICLE.
== END 2021-05-24 14:21 | disposition home or self-care (01) | DRG 314 ==
LOC: M.ERS 15:21 → M.TBA-ER 17:25 → M.2W 05-23 17:17
PROVIDERS: Emergency Medicine; Internal Medicine; Physician Assistant; ADMIT Internal Medicine; ATTEND Internal Medicine
PROC: 4B02XTZ Measurement of Cardiac Defibrillator, External Approach (ICD-10-PCS; principal; 2021-05-23)
DX: T82.198A Other mechanical complication of other cardiac electronic device, initial encounter (principal); I49.01 Ventricular fibrillation; N17.0 Acute kidney failure with tubular necrosis; I49.9 Cardiac arrhythmia, unspecified; I10 Essential (primary) hypertension; E11.40 Type 2 diabetes mellitus with diabetic neuropathy, unspecified; I48.0 Paroxysmal atrial fibrillation; E78.00 Pure hypercholesterolemia, unspecified; E78.5 Hyperlipidemia, unspecified; E66.9 Obesity, unspecified; I25.10 Atherosclerotic heart disease of native coronary artery without angina pectoris; J44.9 Chronic obstructive pulmonary disease, unspecified; G47.33 Obstructive sleep apnea (adult) (pediatric); Y83.8 Other surgical procedures as the cause of abnormal reaction of the patient, or of later complication, without mention of misadventure at the time of the procedure; Z20.822 Contact with and (suspected) exposure to COVID-19; Y92.89 Other specified places as the place of occurrence of the external cause; Z68.35 Body mass index [BMI] 35.0-35.9, adult; Z87.891 Personal history of nicotine dependence; Z72.89 Other problems related to lifestyle; Z95.810 Presence of automatic (implantable) cardiac defibrillator; Z79.4 Long term (current) use of insulin; Z79.899 Other long term (current) drug therapy; Z98.49 Cataract extraction status, unspecified eye; Z95.1 Presence of aortocoronary bypass graft

== ENCOUNTER → 2021-06-30 | Outpatient (CLI) | payer MEDICARE, OTHER ==
[~2021-06-30] MED LIST changes: +ALPRAZOLAM 0.50.5 M1 PO; +PACERONE 200 M200 M1 PO; +SILDENAFIL CITR50 MG PO; +TERAZOSIN HCL5 MG PO
[2021-06-30 11:39] LABS: ALBUMIN 3.7 g/dL (3.4-5.0); CALCIUM 9.1 mg/dL (8.5-10.1); CREATININE 2.1 mg/dL (0.6-1.3); POTASSIUM 3.8 mmol/L (3.5-5.1); TOTAL BILIRUBIN 0.7 mg/dL (<0.1-1.0); TOTAL PROTEIN 7.1 g/dL (6.4-8.2)
== END ==
LOC: M.LAB 10:28
PROVIDERS: ATTEND Internal Medicine Cardiovascular Disease
DX: E11.9 Type 2 diabetes mellitus without complications (principal); I10 Essential (primary) hypertension; I47.2 Ventricular tachycardia; E78.2 Mixed hyperlipidemia; Z79.4 Long term (current) use of insulin

== ENCOUNTER → 2021-07-04 | Outpatient (CLI) | payer MEDICARE, OTHER ==
[~2021-07-04] MED LIST changes: +ASA81BEC PO; +COZAAR 25 MG TA25 M2 PO; +METOPROLOL TART25 MG PO; +NEURONTIN100 MG PO
[2021-07-04 10:33] LABS: CALCIUM 9.3 mg/dL (8.5-10.1); CREATININE 2.1 mg/dL (0.6-1.3); POTASSIUM 4.2 mmol/L (3.5-5.1)
[2021-07-05 02:06] LABS: GLYCOHEMOGLOBIN (HGB A1C) 7.8 % (4.8-5.6)
== END ==
LOC: M.RAD 09:50
PROVIDERS: ATTEND Internal Medicine
DX: M25.761 Osteophyte, right knee (principal); I70.201 Unspecified atherosclerosis of native arteries of extremities, right leg; M25.561 Pain in right knee; E11.9 Type 2 diabetes mellitus without complications; Z79.4 Long term (current) use of insulin

== ENCOUNTER → 2021-07-08 | Outpatient (CLI) | payer MEDICARE, OTHER ==
[~2021-07-08] MED LIST changes: -ASA81BEC PO; -COZAAR 25 MG TA25 M2 PO; -METOPROLOL TART25 MG PO; -NEURONTIN100 MG PO
[2021-07-08 13:47] LABS: CALCIUM 8.9 mg/dL (8.5-10.1); CREATININE 1.3 mg/dL (0.6-1.3); POTASSIUM 3.7 mmol/L (3.5-5.1)
== END ==
LOC: M.LAB 13:27
PROVIDERS: ATTEND Internal Medicine Cardiovascular Disease
DX: I48.91 Unspecified atrial fibrillation (principal); I10 Essential (primary) hypertension; I25.10 Atherosclerotic heart disease of native coronary artery without angina pectoris

== ENCOUNTER → 2021-07-19 | Outpatient (CLI) | payer MEDICARE, OTHER ==
[~2021-07-19] MED LIST changes: +ASA81BEC PO; +COZAAR 25 MG TA25 M2 PO; +METOPROLOL TART25 MG PO; +NEURONTIN100 MG PO
--- NOTE | 2021-08-19 08:14 | SLEEP ---
[address] [address] SLEEP STUDY REPORT Name: PBSHIMA Pedro Room: [facility]#: [id number] Admission: 07/19/21 Attend Phys: Alexandr Welch MD Discharge: Date of : 41 Report #: [id number] THIS REPORT FOR: cc: Jessica Michele MD, Lin W. MD Pervez, Adeel MD ~ DATE OF STUDY: 07/19/2021 SLEEP STUDY INDICATION FOR SLEEP STUDY: Severe obstructive sleep apnea, failed to be adequately controlled with CPAP therapy. The patient also has difficulty exhaling against the constant CPAP pressure. INTERPRETATION: Total duration of the study is 422 minutes. During this time duration, the patient was asleep for only 52 minutes with an overall sleep efficiency markedly decreased to 12.2%. Sleep onset initially occurred around 28 minutes after lying down in bed. N1 sleep duration was 66%, N2 duration is 34%. There is no N3 sleep recorded. There is no REM sleep recorded. Overall sleep efficiency again is very low at 12.2%. Body position data indicates the patient was lying supine for most of the sleep study. Mean heart rate was 64. There were no significant periodic limb movements recorded. Arousal index elevated to 55. There is severe sleep fragmentation. O2 saturation is mostly maintained at or above 90%. This is a BiPAP titration as it indicates the patient was initially started with a BiPAP pressure of 8/4. This was gradually increased to 14/8. The patient did tolerate BiPAP pressure better than CPAP and had a favorable response to BiPAP therapy; however, due to a severe reduction in sleep efficiency and total sleep time, the patient's optimal BiPAP pressure could not be evaluated during this sleep study. IMPRESSION: Previously documented severe obstructive sleep apnea with a partial response to CPAP therapy. The patient also had difficulty tolerating CPAP and exhaling against the constant CPAP pressure. During the sleep study, there was a favorable response to BiPAP therapy; however, due to severe reduction in total sleep time and sleep efficiency, the patient's optimal BiPAP pressures could not be determined. O2 saturation was adequately maintained during the sleep study. RECOMMENDATIONS: Recommend initiation of BiPAP therapy as the patient's optimal BiPAP pressures could not be determined during the sleep study. I recommend placing him on a BiPAP auto with Imax of 20, pressure support of 5 and EPAP range of 5-12 with heated humidity and mask per patient preference while asleep. During the sleep study, a medium AirFit F20 full [place] [address] SLEEP STUDY REPORT Name: SHIMA AMBRIZ Room: [facility]#: [id number] Admission: 07/19/21 Attend Phys: Alexandr Welch MD Discharge: Date of : 41 Report #: [id number] While there are no desaturations recorded during the sleep study, the patient did not have sustained sleep during the sleep study either and therefore, it will be possible that he is more hypoxemic, when in sustained sleep. Therefore, after he has used a BiPAP auto for a few weeks, I will plan to obtain a nocturnal pulse oximetry with a BiPAP auto in place to verify that O2 saturation is adequately maintained. If he is hypoxemic, we will add oxygen in line. We will also plan to see the patient in the office for followup and then make adjustments to BiPAP pressures in accordance with the memory card data. His entire sleep study was reviewed by board certified sleep physician. <ELECTRONICALLY SIGNED> By: Alexandr Welch MD 08/19/21813 34 49Alexandr Welch MD /nt
== END ==
LOC: M.SLEEPLAB 20:54
PROVIDERS: ATTEND Internal Medicine Critical Care Medicine
DX: G47.33 Obstructive sleep apnea (adult) (pediatric) (principal)

== ENCOUNTER 2021-08-16 02:58 | Inpatient (IN) | payer MEDICARE, OTHER ==
[2021-08-16] VITALS (7 sets, daily range): BP systolic 140–198; BP diastolic 70–80
[~2021-08-16] VITALS: Ht 182.9 cm; Wt 116.1 kg
[~2021-08-16 02:58] MED LIST changes: -ASA81BEC PO; -COZAAR 25 MG TA25 M2 PO; -METOPROLOL TART25 MG PO; -NEURONTIN100 MG PO
[2021-08-16] MEDS ORDERED: METOPROLOL TART25 MG PO (03:16)
[2021-08-16 03:23] LABS: ABSOLUTE EOSINOPHILS 0.1 thou/uL (0.0-0.7); ABSOLUTE LYMPHOCYTES 0.7 thou/uL (0.8-5.3); ABSOLUTE MONOCYTES 0.4 thou/uL (0.0-1.2); ABSOLUTE NEUTROPHILS 6.1 thou/uL (1.6-8.1); BASOPHILS 0.6 %; EOSINOPHILS 0.8 %; HEMATOCRIT 41.4 % (42.0-52.0); HEMOGLOBIN 13.7 gm/dL (14.0-18.0); LYMPHOCYTES 9.2 %; MCH 28.5 pg (26.0-34.0); MCHC 33.1 g/dL (28.0-37.0); MCV 86.2 fL (80.0-100.0); NUCLEATED RBCS 0 /100WBC; PLATELET COUNT* 137 thou/uL (150-400); POLYS 83.4 %; RDW-CV 15.1 % (10.5-14.5); WBC 7.3 thou/uL (4.0-11.0)
[2021-08-16 03:33] LABS: CALCIUM 8.9 mg/dL (8.5-10.1); POTASSIUM 4.1 mmol/L (3.5-5.1)
[2021-08-16 03:44] LABS: ALBUMIN 3.5 g/dL (3.4-5.0); MAGNESIUM 2.1 mg/dL (1.8-2.4); TOTAL BILIRUBIN 0.8 mg/dL (<0.1-1.0); TOTAL PROTEIN 7.3 g/dL (6.4-8.2)
[2021-08-16] MEDS ORDERED: NEURONTIN100 MG PO (17:43)
[2021-08-17] MEDS ORDERED: AMIODARONE HCL400 MG PO (00:31)
[2021-08-17 04:51] LABS: ABSOLUTE BASOPHILS 0.1 thou/uL (0.0-0.2); ABSOLUTE EOSINOPHILS 0.2 thou/uL (0.0-0.7); ABSOLUTE MONOCYTES 0.8 thou/uL (0.0-1.2); ABSOLUTE NEUTROPHILS 6.6 thou/uL (1.6-8.1); BASOPHILS 0.7 %; EOSINOPHILS 1.9 %; HEMATOCRIT 40.7 % (42.0-52.0); HEMOGLOBIN 13.3 gm/dL (14.0-18.0); LYMPHOCYTES 11.7 %; MCH 28.4 pg (26.0-34.0); MCHC 32.8 g/dL (28.0-37.0); MCV 86.6 fL (80.0-100.0); MONOCYTES 9.3 %; MPV 8.1 fl. (7.2-11.1); NUCLEATED RBCS 0 /100WBC; PLATELET COUNT* 148 thou/uL (150-400); POLYS 76.4 %; RBC 4.69 mil/uL (4.50-6.00); RDW-CV 15.5 % (10.5-14.5); WBC 8.6 thou/uL (4.0-11.0)
[2021-08-17 05:03] LABS: ALBUMIN 3.1 g/dL (3.4-5.0); CALCIUM 8.9 mg/dL (8.5-10.1); CREATININE 1.2 mg/dL (0.6-1.3); POTASSIUM 4.5 mmol/L (3.5-5.1); TOTAL BILIRUBIN 0.9 mg/dL (<0.1-1.0); TOTAL PROTEIN 6.8 g/dL (6.4-8.2)
[2021-08-17 06:40] VITALS: BP 183/75
[2021-08-17 08:00] VITALS: BP 185/59
--- NOTE | 2021-08-17 11:39 | EKG ---
[place] [address] ELECTROCARDIOGRAM REPORT Name: SHIMA AMBRIZ Room: [address]R.#: [id number] Admission: 08/16/21 Attend Phys: Joya Gaspar, Discharge: Date of : 41 Date of Service: 08/16/21 030 Report #: [id number] THIS REPORT FOR: //name// [facility] ED Test Date: 2021-08-16 Test Time: 03:01:02 Pat Name: SHIMA AMBRIZ Department: Room: [facility] Gender: M Provider Service Representative: MR : 1945 Requested By: Anay Skaggs Order Number: [id number] MD: Kvng Diaz Measurements Intervals [place] Rate: 69 P: 100 [place]: 53 QRS: -52 QRSD: 164 T: -2 QT: 499 QTc: 535 Interpretive Statements Sinus rhythm Atrial premature complex Short [place] interval RBBB and LAFB Compared to ECG 05/22/2021 15:24:52 Atrial premature complex(es) now present Left anterior fascicular block now present Electronically Signed On 08-17-2021 11:39:32 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
[2021-08-17 12:00] VITALS: BP 190/66
[2021-08-17] MEDS ORDERED: ASA81BEC PO (15:24)
[2021-08-17] MEDS ORDERED: COZAAR 25 MG TA25 M2 PO (15:26)
[2021-08-17 16:00] VITALS: BP 162/63
[2021-08-17 20:00] VITALS: BP 180/65
[2021-08-18] VITALS: BP 183/75
[2021-08-18 04:00] VITALS: BP 164/72
[2021-08-18 08:11] VITALS: BP 172/74
[2021-08-18 12:13] VITALS: BP 192/77
[2021-08-18 16:59] VITALS: BP 118/76
--- NOTE | 2021-08-18 17:48 | 2DMMODE ---
[place] [address] 2 D/M-MODE ECHOCARDIOGRAM Name: SHIMA AMBRIZ Pedro Room: [facility] ADM IN [facility].#: [id number] Admission: 08/17/21 Attend Phys: Joya Gaspar, Discharge: Date of : 41 Date of Service: 08/18/21 1748 Report #: [id number] THIS REPORT FOR: cc: Jessica Michele MD, Lin W. MD Liston, Michael J. MD [facility] ~ ADDENDUM APPROVED REPORT Study performed: 08/18/2021 15:18:59 EXAM: Limited 2D Echocardiogram Patient Location: In-Patient Room #: [facility] Status: routine BSA: 2.37 Rhythm: NSR Indications Congestive Heart Failure Pacemaker Volumes Left Atrial Volume (Systole) LA ESV Index: 41.50 mL/m2 Tricuspid Valve RAP Estimate: 5.00 mmHg TR Peak Gr.: 20.23 mmHg RVSP: 25.00 mmHg PA Pressure: 25.00 mmHg Left Ventricle The left ventricle is normal size. There is normal LV segmental wall motion. There is normal left ventricular wall thickness. The left ventricular systolic function is normal. LVEF is 55-60%. Right Ventricle Right ventricle is mildly dilated. Pacemaker lead is present in the right ventricle. Atria Left atrium is mildly dilated. Right atrium is mildly [place] [address] 2 D/M-MODE ECHOCARDIOGRAM Name: SHIMA AMBRIZ Room: [address] [place] .R.#: [id number] Admission: 08/17/21 Attend Phys: Joya Gaspar, Discharge: Date of : 41 Date of Service: 08/18/211747 Report #: [id number] Bioprosthetic aortic valve with normal function. No aortic regurgitation is present. Mitral Valve The mitral valve is normal in structure. Trace mitral regurgitation. Tricuspid Valve The tricuspid valve is normal in structure. Trace tricuspid regurgitation. No pulmonary hypertension. Pulmonic Valve The pulmonary valve is normal in structure. Great Vessels The aortic root is normal in size. IVC is normal in size and collapses >50% with inspiration. Pericardium There is no pericardial effusion. <Conclusion> The left ventricle is normal size. There is normal left ventricular wall thickness. The left ventricular systolic function is normal. LVEF is 55-60%. Pacemaker lead is present in the right ventricle. Left atrium is mildly dilated. Right atrium is mildly dilated. Trace mitral regurgitation. Trace tricuspid regurgitation. No pulmonary hypertension. IVC is normal in size and collapses >50% with inspiration. Bioprosthetic aortic valve with normal function. <ELECTRONICALLY SIGNED> By: Kvng Diaz MD, FACC 08/18/211747 174 47 Kvng Diaz MD, FACC /INF
[2021-08-18 20:00] VITALS: BP 183/77
[2021-08-19] VITALS: BP 194/80
[2021-08-19 01:29] VITALS: BP 125/53
[2021-08-19 04:00] VITALS: BP 141/56
[2021-08-19 08:30] VITALS: BP 147/56
--- NOTE | 2021-08-19 08:39 | CON ---
[address] [address] CONSULTATION Name: SHIMA AMBRIZ Room: [place] [address] ADM [place] M.R.#: [id number] Admission: 08/17/21 Attend Phys: Joya Gaspar MD Discharge: Date of : 41 Report #: [id number] THIS REPORT FOR: cc: Jessica Michele MD, Lin W. MD Liston, Michael J. MD FACC ~ cc: Jessica Michele MD DATE OF CONSULTATION: 08/16/2021 CARDIOLOGY CONSULT INDICATION: Discharged his home defibrillator. HISTORY OF PRESENT ILLNESS: The patient is a 76-year-old gentleman who presented to the hospital earlier this morning after having what he felt was a shock from his defibrillator. He has a history of paroxysmal atrial fibrillation as well as ventricular arrhythmias for which he is status post ICD placement for secondary prevention. Interrogation of his device showed that he had 2 episodes of torsades early this morning, both of which for which he received a shock. Presently, he is without cardiac complaint. He is not having chest pain or shortness of breath. PAST MEDICAL HISTORY: 1. Coronary artery disease with remote coronary artery bypass grafting with a NUNEZ graft to the LAD in the setting of aortic valve replacement with a bioprosthetic valve in 2010. 2. Paroxysmal atrial fibrillation. 3. History of out of hospital arrest. 4. History of ventricular arrhythmias, status post ICD placement for secondary prevention. 5. Diabetes. 6. Hypertension. 7. Dyslipidemia. 8. Cataract extraction. ALLERGIES: None documented. HOME MEDICATIONS: Alprazolam 0.5 mg p.o. b.i.d., amiodarone 200 mg p.o. daily, atorvastatin 40 mg at bedtime, vitamin D3 5000 mcg daily, B12 1000 mcg daily, Lasix 40 mg p.o. daily, hydrochlorothiazide 25 mg p.o. daily, insulin 12 units with meals, Lantus 25 units b.i.d., losartan 50 mg b.i.d., magnesium 400 mg daily, metoprolol tartrate 25 mg b.i.d., potassium chloride 20 mEq daily, Xarelto 20 mg at dinnertime, Viagra 50 mg p.r.n., trazodone 5 [place] [address] CONSULTATION Name: SHIMA AMBRIZ Room: [address]#: [id number] Admission: 08/17/21 Attend Phys: Joya Gaspar MD Discharge: Date of : 41 Report #: [id number] FAMILY HISTORY: The patient's mother and father both have heart disease. SOCIAL HISTORY: The patient is . He is retired. He quit smoking 30 years ago. He does not drink alcohol. REVIEW OF SYSTEMS: Positive for sleep apnea, chronic skin condition, joint pain, otherwise unremarkable. PHYSICAL EXAMINATION: VITAL SIGNS: Blood pressure 155/74, pulse 64 and regular. GENERAL: This is a pleasant elderly gentleman in no distress. Mood and affect appropriate. HEENT: Extraocular muscles intact. Mucous membranes are moist. NECK: Examination of the neck shows no jugular venous distention. There are no carotid bruits. CHEST: Reveals clear lung styles without wheezes or rales. CARDIAC: Reveals a regular rhythm with normal S1 and S2. I do not appreciate gallop or murmur. ABDOMEN: Reveals normal bowel sounds. The abdomen is soft, nontender. EXTREMITIES: Shows no edema. SKIN: Dry. LABORATORY DATA: Reviewed. Sodium 139, potassium 4.1, chloride 104, bicarbonate 28, BUN 11, creatinine 1.0, serum glucose 224, AST 25, total bilirubin 0.8, calcium 8.9, phosphorus 4.0, magnesium 2.1, alkaline phosphatase 140, ALT 27, total protein 7.3, albumin 3.5, EGFR 72. High sensitivity troponin 22 and 24 sequentially. NT-proBNP 1375. White blood cell count 7.3, hemoglobin 13.7, platelet count 137,000. Chest x-ray: Mild cardiomegaly. Mild atelectasis. No evidence of heart failure. IMPRESSION AND RECOMMENDATIONS: 1. Torsades by interrogation of his defibrillator. Electrolytes appear stable at this time. We will obtain limited echocardiogram to evaluate the cardiac function at this time. His last echo was in 04/2021. This showed normal left ventricular systolic function. Electrolytes stable at this time. Continue telemetry monitoring. 2. History of coronary artery disease. Preserved left ventricular function by most recent echocardiogram. He has a NUNEZ graft to the LAD. LAD chronically occluded. No symptoms to suggest angina or acute coronary syndrome. Troponins are unremarkable. 3. Paroxysmal atrial fibrillation. Maintaining sinus rhythm at this time. Continue anticoagulation at this time. He is on amiodarone. Continuing at this [address] [place] [address] CONSULTATION Name: SHIMA AMBRIZ Room: [place] [address] ADM [place].#: [id number] Admission: 08/17/21 Attend Phys: Joya Gaspar MD Discharge: Date of : 41 Report #: [id number] time. 4. Status post bioprosthetic aortic valve. Valve functioning normally by most recent echocardiogram. 5. Dyslipidemia. He has been at goal on current statin agent. 6. Diabetes. Diabetes treatment per hospitalist. 7. Obstructive sleep apnea. <ELECTRONICALLY SIGNED> By: Kvng Diaz MD, FACC 08/19/21 0839 1331 [id number] Diaz MD, FACC /nt
[2021-08-19 12:22] VITALS: BP 179/79
[2021-08-19] MEDS ORDERED: AMIODARONE HCL400 MG PO (15:47)
[2021-08-19 16:10] VITALS: BP 179/79
== END 2021-08-19 16:38 | disposition home or self-care (01) | DRG 291 ==
LOC: M.ERS 02:58 → M.TBA-ER 05:42 → M.2W 20:44
PROVIDERS: Emergency Medicine; Internal Medicine; ADMIT Internal Medicine; ATTEND Internal Medicine
PROC: 4B02XTZ Measurement of Cardiac Defibrillator, External Approach (ICD-10-PCS; principal; 2021-08-18)
DX: I11.0 Hypertensive heart disease with heart failure (principal); I50.33 Acute on chronic diastolic (congestive) heart failure; D68.59 Other primary thrombophilia; J98.11 Atelectasis; Z79.01 Long term (current) use of anticoagulants; E78.5 Hyperlipidemia, unspecified; E11.42 Type 2 diabetes mellitus with diabetic polyneuropathy; Z79.4 Long term (current) use of insulin; Z95.0 Presence of cardiac pacemaker; I48.0 Paroxysmal atrial fibrillation; G47.33 Obstructive sleep apnea (adult) (pediatric); Z20.822 Contact with and (suspected) exposure to COVID-19

== ENCOUNTER → 2021-10-07 | Outpatient (CLI) | payer MEDICARE, OTHER ==
[~2021-10-07] MED LIST changes: +ASA81BEC PO; +COZAAR 25 MG TA25 M2 PO; +METOPROLOL TART25 MG PO; +NEURONTIN100 MG PO
== END ==
LOC: M.CT 09:52
PROVIDERS: ATTEND Internal Medicine Critical Care Medicine
DX: R91.8 Other nonspecific abnormal finding of lung field (principal); R59.0 Localized enlarged lymph nodes; I25.10 Atherosclerotic heart disease of native coronary artery without angina pectoris; Z79.899 Other long term (current) drug therapy

== ENCOUNTER 2021-11-23 18:27 | Inpatient (IN) | payer MEDICARE, OTHER ==
[~2021-11-23] VITALS: Ht 182.9 cm; Wt 120.2 kg
[2021-11-23 18:32] VITALS: BP 175/67
[2021-11-23 19:08] LABS: HEMOGLOBIN 12.8 gm/dL (14.0-18.0); MCH 27.4 pg (26.0-34.0); MCHC 32.9 g/dL (28.0-37.0); MCV 83.3 fL (80.0-100.0); MPV 7.9 fl. (7.2-11.1); NUCLEATED RBCS 0 /100WBC; PLATELET COUNT* 134 thou/uL (150-400); RBC 4.68 mil/uL (4.50-6.00); RDW-CV 16.1 % (10.5-14.5); WBC 9.9 thou/uL (4.0-11.0)
[2021-11-23 19:17] LABS: CALCIUM 8.3 mg/dL (8.5-10.1); CREATININE 0.9 mg/dL (0.6-1.3); POTASSIUM 4.2 mmol/L (3.5-5.1)
[2021-11-23 19:32] LABS: ALBUMIN 3.2 g/dL (3.4-5.0); TOTAL BILIRUBIN 1.6 mg/dL (<0.1-1.0); TOTAL PROTEIN 6.6 g/dL (6.4-8.2)
[2021-11-23 20:05] LABS: ABSOLUTE LYMPHOCYTES 0.6 thou/uL (0.8-5.3); ABSOLUTE MONOCYTES 0.5 thou/uL (0.0-1.2); ABSOLUTE NEUTROPHILS 8.8 thou/uL (1.6-8.1)
[2021-11-23 20:06] LABS: PLATELET ESTIMATE ADEQUATE
[2021-11-23 22:32] VITALS: BP 169/68
[2021-11-23 22:35] VITALS: BP 146/63
[2021-11-23 23:57] VITALS: BP 141/60
[2021-11-24] MEDS ORDERED: ALPRAZOLAM XR3 MG PO (00:28)
[2021-11-24 04:00] VITALS: BP 167/64
[2021-11-24 08:00] VITALS: BP 178/82
--- NOTE | 2021-11-24 09:55 | EKG ---
[place] [address] ELECTROCARDIOGRAM REPORT Name: SHIMA AMBRIZ Room: [address] ADM [place] .R.#: [id number] Admission: 11/23/21 Attend Phys: Kareem Reddy, Discharge: Date of : 41 Date of Service: 11/23/211831 Report #: [id number] THIS REPORT FOR: //name// [facility] ED Test Date: 2021-11-23 Test Time: 18:32:55 Pat Name: SHIMA AMBRIZ Department: Room: [facility] Gender: M Tow Feeder: MARCO : 1945 Requested By: Manny Parra Order Number: [id number] MD: Ted Pate Measurements Intervals [place] Rate: 72 P: 43 [place]: 158 QRS: -52 QRSD: 167 T: 3 QT: 488 QTc: 535 Interpretive Statements Sinus rhythm RBBB and LAFB Compared to ECG 08/16/2021 03:01:02 Atrial premature complex(es) no longer present Electronically Signed On 11-24-2021 9:55:03 PAINTER by Ted Pate [email or web address] <ELECTRONICALLY SIGNED> By: Ted Pate MD, [facility] 11/24/21 0955 1832 1832 Ted Pate MD, [facility] /EPI
[2021-11-24 11:53] VITALS: BP 60/68
[2021-11-24 15:48] VITALS: BP 168/76
[2021-11-24 20:00] VITALS: BP 176/76
[2021-11-25] VITALS: BP 144/52
[2021-11-25 04:00] VITALS: BP 157/68
[2021-11-25 05:21] LABS: HEMATOCRIT 37.2 % (42.0-52.0); HEMOGLOBIN 12.1 gm/dL (14.0-18.0); MCH 27.3 pg (26.0-34.0); MCHC 32.6 g/dL (28.0-37.0); MCV 83.8 fL (80.0-100.0); MPV 8.7 fl. (7.2-11.1); RBC 4.44 mil/uL (4.50-6.00); RDW-CV 15.8 % (10.5-14.5); WBC 8.3 thou/uL (4.0-11.0)
[2021-11-25 05:33] LABS: ALBUMIN 2.9 g/dL (3.4-5.0); CALCIUM 8.2 mg/dL (8.5-10.1); CREATININE 1.1 mg/dL (0.6-1.3); POTASSIUM 3.9 mmol/L (3.5-5.1); TOTAL BILIRUBIN 0.9 mg/dL (<0.1-1.0); TOTAL PROTEIN 6.3 g/dL (6.4-8.2)
[2021-11-25 08:23] VITALS: BP 149/66
[2021-11-25 12:40] VITALS: BP 158/79
[2021-11-25 16:43] VITALS: BP 162/57
[2021-11-25 20:00] VITALS: BP 176/57
[2021-11-26 02:30] VITALS: BP 144/87
[2021-11-26 04:24] LABS: CALCIUM 8.6 mg/dL (8.5-10.1); POTASSIUM 4.5 mmol/L (3.5-5.1)
[2021-11-26 05:59] VITALS: BP 177/74
[2021-11-26 08:00] VITALS: BP 179/63
[2021-11-26] MEDS ORDERED: CEFDINIR300 MG PO (08:15)
[2021-11-26] MEDS ORDERED: DOXYCYCLINE 10100 MG PO (08:15)
[2021-11-26] MEDS ORDERED: AMIODARONE HCL400 MG PO (08:23)
[2021-11-26] MEDS ORDERED: SPIRONOLACTONE25 MG PO (08:23)
[2021-11-26 11:35] VITALS: BP 179/63
[2021-11-26 13:09] VITALS: BP 179/63
== END 2021-11-26 15:59 | disposition home health service (06) | DRG 314 ==
LOC: M.ERS 18:27 → M.TBA-ER 20:26 → M.2W 20:54 → M.TBA-ER 20:54 → M.2W 22:01
PROVIDERS: Emergency Medicine Emergency Medical Services; Internal Medicine; Internal Medicine Cardiovascular Disease; ADMIT Internal Medicine; ATTEND Internal Medicine
PROC: 4B02XTZ Measurement of Cardiac Defibrillator, External Approach (ICD-10-PCS; principal; 2021-11-26)
DX: T82.897A Other specified complication of cardiac prosthetic devices, implants and grafts, initial encounter (principal); I50.33 Acute on chronic diastolic (congestive) heart failure; E44.1 Mild protein-calorie malnutrition; I47.2 Ventricular tachycardia; Z20.822 Contact with and (suspected) exposure to COVID-19; E11.40 Type 2 diabetes mellitus with diabetic neuropathy, unspecified; I48.0 Paroxysmal atrial fibrillation; E11.65 Type 2 diabetes mellitus with hyperglycemia; J40 Bronchitis, not specified as acute or chronic; E78.5 Hyperlipidemia, unspecified; I11.0 Hypertensive heart disease with heart failure; G47.33 Obstructive sleep apnea (adult) (pediatric); D50.9 Iron deficiency anemia, unspecified; I25.10 Atherosclerotic heart disease of native coronary artery without angina pectoris; E66.9 Obesity, unspecified; Z87.891 Personal history of nicotine dependence; Z98.49 Cataract extraction status, unspecified eye; Z98.52 Vasectomy status; Z95.0 Presence of cardiac pacemaker; Z83.3 Family history of diabetes mellitus; Z82.49 Family history of ischemic heart disease and other diseases of the circulatory system; Z79.82 Long term (current) use of aspirin; Z79.899 Other long term (current) drug therapy; Z95.2 Presence of prosthetic heart valve; Z68.35 Body mass index [BMI] 35.0-35.9, adult; Y83.8 Other surgical procedures as the cause of abnormal reaction of the patient, or of later complication, without mention of misadventure at the time of the procedure; Y92.89 Other specified places as the place of occurrence of the external cause